=== PATIENT | female | born 1970 | race Caucasian/White ===

== ENCOUNTER 2017-08-03 18:12 | Emergency (ER) | payer BC ==
[2017-08-03 20:22] LABS: Absolute Monocytes 0.8 K/uL (0.1-1.3); Absolute Neutrophil 4.9 K/uL (1.8-8.0); Basophils % 0.9 % (0-1.3); Eosinophils % 1.8 % (0-4.4); Hematocrit 37.6 % (36.0-45.0); Lymphocytes % 33.4 % (15.3-44.8); MCH 25.1 pg (27.0-35.0); Monocytes % 8.8 % (3.3-12.3); RBC Red Blood Cell Count 4.94 M/uL (3.86-4.86)
[2017-08-03 20:34] LABS: Bicarbonate 32 mEq/L (21-31); Glucose Level 106 mg/dL (65-120); Lipase 15 U/L (22-51); Potassium 4.1 mEq/L (3.6-5.0); Sodium Level 139 mEq/L (135-145)
[2017-08-03 20:41] LABS: ALT/SGPT 17 IU/L (10-60); AST/SGOT 21 IU/L (10-42); Albumin 4.5 g/dL (3.2-5.5); Alkaline Phosphatase 70 IU/L (42-121); Amylase Level 56 U/L (28-100); BUN Blood Urea Nitrogen 11 mg/dL (6-20); Bilirubin Direct < 0.1 mg/dL (0-0.2); Bilirubin Total 0.6 mg/dL (0.3-1.2); Protein, Total 8.2 g/dL (6.0-8.3)
[2017-08-03 20:46] LABS: Urine Blood NEGATIVE (NEG); Urine Glucose NEGATIVE (NEG); Urine Protein NEGATIVE (NEG)
[2017-08-03 20:49] LABS: Urine Bacteria <20 /HPF (<20); Urine RBC <5 /HPF (NONE SEEN)
[2017-08-03 20:50] LABS: Urine Culture Reflex Order NOT NEEDED
[2017-08-03] MEDS ORDERED: ONDANSETRON 4 MG/2 ML VIAL ONE (21:07)
[2017-08-03] MEDS ORDERED: MORPHINE 4 MG/ML SYR ONE (21:07)
[2017-08-03] MEDS ORDERED: NA CHLORIDE 0.9% 1,000 ML ONE (21:08)
--- NOTE | 2017-08-03 21:24 | RAD REPORT ---
EXAM DESCRIPTION: US - Abdomen Exam Limited - 08/03/2017 8:44 pm CLINICAL HISTORY: Abdominal pain. COMPARISON: June 2017 FINDINGS: The gallbladder wall is not thickened. A gallstone is not seen. A 4 millimeter allow poly p is present. The biliary tree is normal caliber. IMPRESSION: 4 millimeter gallbladder polyp unchanged from June 2017
--- NOTE | 2017-08-03 22:11 | EDPHYS ---
Physician Documentation [facility] Name: Abby Fleming Age: 47 yrs Sex: Female : 1970 Arrival Date: 08/03/2017 Time: 18:15 Bed 27 Private MD: Sylvester Pickett ED Physician Benjamín Watkins HPI: 08/03 20:11 This 47 yrs old Female presents to ER via Ambulatory with complaints of Flank pkl Pain. 20:11 The patient presents with abdominal pain in the right upper quadrant. Onset: The pkl symptoms/episode began/occurred 1 month(s) ago, and became worse today. The symptoms radiate to right back. Associated signs and symptoms: Pertinent positives: nausea, vomiting, and diarrhea. The patient has experienced a previous episode, approximately 1 months ago, and the symptoms today are exactly the same. 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 - Social history:: Smoking status: unknown. ROS: 20:11 Eyes: Negative for injury, pain, redness, and discharge, ENT: Negative for injury, pkl pain, and discharge, Neck: Negative for injury, pain, and swelling, Cardiovascular: Negative for chest pain, palpitations, and edema, Respiratory: Negative for shortness of breath, cough, wheezing, and pleuritic chest pain. 20:11 Abdomen/GI: Positive for abdominal pain, nausea, vomiting, and diarrhea, of the right upper quadrant. 20:11 Back: Negative for acute changes. 20:11 : Negative for urinary symptoms. 20:11 MS/extremity: Negative for acute changes. 20:11 Skin: Negative for rash. 20:11 Neuro: Negative for altered mental status. Exam: 20:11 Head/Face: Normocephalic, atraumatic. Eyes: Pupils equal round and reactive to light, pkl extra-ocular motions intact. Lids and lashes normal. Conjunctiva and sclera are non-icteric and not injected. Cornea within normal limits. Periorbital areas with no swelling, redness, or edema. ENT: Nares patent. No nasal discharge, no septal abnormalities noted. Tympanic membranes are normal and external auditory canals are clear. Oropharynx with no redness, swelling, or masses, exudates, or evidence of obstruction, uvula midline. Mucous membranes moist. Neck: Trachea midline, no thyromegaly or masses palpated, and no cervical lymphadenopathy. Supple, full range of motion without nuchal rigidity, or vertebral point tenderness. No Meningismus. Chest/axilla: Normal chest wall appearance and motion. Nontender with no deformity. No lesions are appreciated. Cardiovascular: Regular rate and rhythm with a normal S1 and S2. No gallops, murmurs, or rubs. Normal PMI, no JVD. No pulse deficits. Respiratory: Lungs have equal breath sounds bilaterally, clear to auscultation and percussion. No rales, rhonchi or wheezes noted. No increased work of breathing, no retractions or nasal flaring. 20:11 Abdomen/GI: Bowel sounds: normal, Palpation: soft, mild abdominal tenderness, in the right upper quadrant. 20:11 Back: Exam negative for acute changes. 20:11 : Exam negative for acute changes. 20:11 Musculoskeletal/extremity: Exam is negative for acute changes. 20:11 Skin: Exam negative for rash. Vital Signs: 18:31 BP 126 / 82; Pulse 77; Resp 18; Temp 97.7(TE); Pulse Ox 100% on R/A; Weight 81.65 kg; hj Height 5 ft. 6 in. (167.64 cm); Pain 8/10; 20:30 BP 129 / 77; Pulse 67; Resp 16; Pulse Ox 99% on R/A; rk2 22:32 BP 121 / 74; Pulse 81; Resp 16; Pulse Ox 100% on R/A; rk2 18:31 Body Mass Index 29.05 (81.65 kg, 167.64 cm) hj MDM: 19:39 Patient medically screened. pkl 22:09 Data reviewed: vital signs, nurses notes, EKG, radiologic studies, ultrasound. pk 08/03 19:57 Order name: Amylase, Serum; Complete Time: 21:51 pkl 08/03 19:57 Order name: Basic Metabolic Panel; Complete Time: 21:51 pkl 08/03 19:57 Order name: CBC with Diff; Complete Time: 20:35 pkl 08/03 19:57 Order name: Creatinine for Radiology; Complete Time: 21:51 pkl 08/03 19:57 Order name: Hepatic Function; Complete Time: 21:51 pkl 08/03 19:57 Order name: Lipase; Complete Time: 21:51 pkl 08/03 19:57 Order name: Urine Microscopic Only; Complete Time: 21:51 pkl 08/03 19:57 Order name: IV Saline Lock; Complete Time: 21:42 pkl 08/03 19:58 Order name: US Abdomen Limited; Complete Time: 21:51 pkl 08/03 20:29 Order name: Urine Dipstick--Ancillary (enter results); Complete Time: 21:51 rg2 08/03 20:29 Order name: Urine --Ancillary (enter results); Complete Time: 21:51 rg2 08/03 19:57 Order name: Labs collected and sent; Complete Time: 21:42 pkl 08/03 19:57 Order name: Urine Dipstick-Ancillary (obtain specimen); Complete Time: 21:42 pkl Administered Medications: 20:52 Drug: Zofran 4 mg Route: IVP; Site: right antecubital; rk2 21:30 Follow up: Response: No adverse reaction rk2 20:53 Drug: NS 0.9% 1000 ml Route: IV; Rate: 125 ml/hr; Site: right antecubital; rk2 22:30 Follow up: Response: No adverse reaction; IV Status: Completed infusion rk2 20:53 Drug: morphine 4 mg Route: IVP; Site: right antecubital; rk2 21:30 Follow up: Response: No adverse reaction rk2 Disposition: 08/03/17 22:10 Discharged to Home. Impression: Abdominal pain. Right upper quadrant. - Condition is Stable. - Prescriptions for Protonix 40 mg Oral Tablet, Delayed Release (E.C.) - take 1 tablet by ORAL route once daily; 15 tablet. Ultram 50 mg Oral Tablet - take 1 tablet by ORAL route every 8 hours As needed; 15 tablet. Zofran 4 mg Oral Tablet - take 1 tablet by ORAL route every 12 hours As needed; 6 tablet. - Medication Reconciliation Form, Thank You Letter, Antibiotic Education, Prescription Opioid Use form. - Follow up: Sylvester Pickett MD; When: 2 - 3 days; Reason: Re-evaluation by your physician. - Problem is new. - Symptoms have improved. Signatures: Dispatcher [employer] Benjamín Walton MD MD pkGunner Contreras RN RN hj Ritu Patterson RN RN rk2
--- NOTE | 2017-08-03 22:11 | ER ---
Nurse's Notes [facility] Name: Abby Fleming Age: 47 yrs Sex: Female : 1970 Arrival Date: 08/03/2017 Time: 18:15 Bed 27 Private MD: Sylvester Pickett Diagnosis: Abdominal pain. Right upper quadrant Presentation: 08/03 18:28 Presenting complaint: Patient states: i have this sharp stabbing pain on my R flank, hj that started a month ago; went to PCP, Rx with antibiotics for gallbladder; pain nis back and is severe; pain 8/10; reports nausea, vomiting, diarrhea;. Transition of care: patient was not received from another setting of care. Onset of symptoms was August 03, 2017. Care prior to arrival: None. 18:28 Method Of Arrival: Ambulatory hj 18:28 Acuity: MELQUIADES 3 hj Triage Assessment: 18:30 General: Appears in no apparent distress. uncomfortable, Behavior is calm, cooperative, hj appropriate for age. Pain: Complains of pain in anterior aspect of right lateral abdomen and right upper quadrant. 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 - Social history:: Smoking status: unknown. Screenin:55 Abuse screen: Denies threats or abuse. rk2 19:55 Nutritional screening: No deficits noted. Tuberculosis screening: No symptoms or risk rk2 factors identified. Fall Risk None identified. Assessment: 19:55 General: Appears in no apparent distress. well groomed, well developed, well nourished. rk2 19:55 Pain: Complains of pain in abdomen and right upper quadrant and anterior aspect of rk2 right lateral abdomen. Neuro: Level of Consciousness is alert, Oriented to person, place, time, situation. Respiratory: Airway is patent Respiratory effort is even, unlabored, Respiratory pattern is regular, symmetrical. GI: Abdomen is distended, Abd is non tender in right upper quadrant. Derm: Skin is pink, warm \T\ dry. Vital Signs: 18:31 BP 126 / 82; Pulse 77; Resp 18; Temp 97.7(TE); Pulse Ox 100% on R/A; Weight 81.65 kg; hj Height 5 ft. 6 in. (167.64 cm); Pain 8/10; 20:30 BP 129 / 77; Pulse 67; Resp 16; Pulse Ox 99% on R/A; rk2 22:32 BP 121 / 74; Pulse 81; Resp 16; Pulse Ox 100% on R/A; rk2 18:31 Body Mass Index 29.05 (81.65 kg, 167.64 cm) ED Course: 18:15 Patient arrived in ED. rg4 18:16 Sylvester Pickett MD is Private Physician. rg4 18:30 Triage completed. hj 18:31 Arm band placed on right wrist. hj 19:38 Benjamín Watkins MD is Attending Physician. pkl 19:50 Ritu Patterson RN is Primary Nurse. rk2 19:55 Patient has correct armband on for positive identification. Bed in low position. Call rk2 light in reach. 20:44 US Abdomen Limited In Process Unspecified. EDMS 20:44 Ultrasound completed. Patient tolerated well. aa4 22:09 Sylvester Pickett MD is Referral Physician. pkl 22:44 No provider procedures requiring assistance completed. IV discontinued. rk2 Administered Medications: 20:52 Drug: Zofran 4 mg Route: IVP; Site: right antecubital; rk2 21:30 Follow up: Response: No adverse reaction rk2 20:53 Drug: NS 0.9% 1000 ml Route: IV; Rate: 125 ml/hr; Site: right antecubital; rk2 22:30 Follow up: Response: No adverse reaction; IV Status: Completed infusion rk2 20:53 Drug: morphine 4 mg Route: IVP; Site: right antecubital; rk2 21:30 Follow up: Response: No adverse reaction rk2 Outcome: 22:10 Discharge ordered by . pkl 22:44 Discharged to home ambulatory. rk2 22:44 Condition: good 22:44 Discharge instructions given to patient, Prescriptions given X 3. 22:47 Patient left the ED. rk2 Signatures: Dispatcher [employer] EDMS Benjamín Watkins MD MD pkl Agnes Johnson aa4 Gunner Tong RN RN hj Garcia, Rubi rg4 Ritu Patterson, RN RN rk2 Corrections: (The following items were deleted from the chart) 18:32 18:31 Pulse 77bpm; Resp 18bpm; Pulse Ox 100% RA; Temp 97.7F Temporal; 81.65 kg; Height hj 5 ft. 6 in.; BMI: 29.0; Pain 8/10; hj
== END 2017-08-03 22:47 | disposition home or self-care (01) ==
LOC: ER 18:12
DX: R10.11 Right upper quadrant pain (principal); Z88.0 Allergy status to penicillin
CPT/HCPCS: 36415; 76705; 80048; 80076; 81003; 81015; 81025; 82150; 83690; 85025; 96361; 96374; 96375; 99283; J2405; J7030

== ENCOUNTER 2017-08-24 08:14 | Day surgery (SDC) | payer BC ==
--- NOTE | 2017-08-20 12:15 | RAD REPORT ---
EXAM DESCRIPTION: RADOP - Outpt Chest Pa/Lat (2 Views) - 08/20/2017 11:53 am CLINICAL HISTORY: Preop/abdominal pain COMPARISON: 2016 FINDINGS: The lungs appear clear of acute infiltrate. The heart is normal size. IMPRESSION: No acute abnormality is displayed
[2017-08-20 12:37] LABS: Absolute Lymphocytes (CBC) 2.6 K/uL (0.7-4.9); Absolute Monocytes 0.6 K/uL (0.1-1.3); Absolute Neutrophil 3.3 K/uL (1.8-8.0); Basophils % 1.4 % (0-1.3); Eosinophils % 2.1 % (0-4.4); Hematocrit 36.5 % (36.0-45.0); Lymphocytes % 38.7 % (15.3-44.8); MCH 25.3 pg (27.0-35.0); MCV 77.8 fL (80-100); MPV 10.9 fL (7.6-11.3); Monocytes % 8.9 % (3.3-12.3); RBC Red Blood Cell Count 4.69 M/uL (3.86-4.86)
[2017-08-20 13:01] LABS: BUN Blood Urea Nitrogen 14 mg/dL (6-20); Bicarbonate 30 mEq/L (21-31); Glucose Level 101 mg/dL (65-120); Potassium 3.8 mEq/L (3.6-5.0); Sodium Level 137 mEq/L (135-145)
[2017-08-20 13:04] LABS: Bilirubin Direct 0.1 mg/dL (0-0.2); Bilirubin Total 0.4 mg/dL (0.3-1.2); Protein, Total 7.2 g/dL (6.0-8.3)
--- NOTE | 2017-08-20 15:29 | EKG ---
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
[~2017-08-24 08:14] MED LIST: CEFOXITIN/SWI 1gm 1 GM/10 ML SYR IV SCH
[2017-08-24] MEDS ORDERED: BUPIVACAINE 0.5% PF 10 ML VIAL ONE (08:47)
[2017-08-24] MEDS ORDERED: Ringers Lactate 1,000 ML IV ONE (08:53)
[2017-08-24] MEDS ORDERED: CIPROFLOXACIN 400mg IV 400 MG/200 ML BAG IV ONE (08:54)
[2017-08-24] MEDS ORDERED: PROPOFOL 200 MG/20 ML VIAL IV ONE (09:05)
[2017-08-24] MEDS ORDERED: MIDAZOLAM HCL 2 MG/2 ML INJ ONE (09:06)
[2017-08-24] MEDS ORDERED: LIDOCAINE 2% MPF 5 ML VIAL ONE (09:06)
[2017-08-24] MEDS ORDERED: ONDANSETRON 4 MG/2 ML VIAL ONE (09:07)
[2017-08-24] MEDS ORDERED: ROCURONIUM 50 MG/5 ML VIAL IV ONE (09:07)
[2017-08-24] MEDS ORDERED: FENTANYL CITR 100 MCG/2 ML ONE (09:07)
[2017-08-24] MEDS ORDERED: DEXAMETHASONE 10 MG/ML VIAL ONE (09:51)
[2017-08-24] MEDS ORDERED: GLYCOPYRROLATE 0.2 MG/ML SYR ONE (10:33)
[2017-08-24] MEDS ORDERED: NEOSTIGMINE 1 MG/ML -5 ML SYRINGE ONE (10:33)
--- NOTE | 2017-08-24 10:53 | P.BOP ---
Preoperative diagnosis: biliary dyskinesia, RUQ pain, cholecystitis Postoperative diagnosis: same Primary procedure: Laparoscopic cholecystectomy Pulpit Operator: BRIGITTE CAGLE Estimated blood loss: <10cc Specimen: gb Findings: as above Anesthesia: General Complications: None Drain(s): Other Transferred to: Recovery Room Condition: Good
[2017-08-24] MEDS: MORPHINE 4 MG/ML SYR ONE ×4 (11:04→11:22)
[2017-08-24] MEDS ORDERED: MORPHINE 4 MG/ML SYR ONE (11:27)
[2017-08-24] MEDS ORDERED: CODEINE 30MG/APAP 300MG TAB ONE (11:53)
[2017-08-24] MEDS ORDERED: DIPHENHYDRAMINE 25 MG TAB/CAP ONE (13:24)
--- NOTE | 2017-08-24 22:19 | OP ---
Date of Procedure: 08/24/2017 Surgeon: Gunner Singh MD [employer] Tufting Machine Operator: Julia Rivera. Preoperative Diagnoses: Biliary dyskinesia, right upper quadrant pain, cholecystitis. Postoperative Diagnoses: Biliary dyskinesia, right upper quadrant pain, cholecystitis. Procedure: Laparoscopic cholecystectomy. Estimated Blood Loss: Less than 10 cc. Specimen: Gallbladder. Findings: As above. Anesthesia: General plus local. Indications: This is the case of a 47-year-old patient with above diagnosis. Fully explained the be nefits, alternatives, and risks of laparoscopic, possible open cholecystectomy which include but are not limited to infection, bleeding, damage to adjacent structures, anesthesia complication, choledoch olithiasis, bile leak, pancreatitis, DC, and even . She also understands this may not relieve a ny symptoms. She might need more than one surgical intervention. She understood and signed the cons ent. Description Of Procedure: The patient was brought to the operating room, placed in the supine positi on. Anesthesia was induced without complication. Abdominal area was prepped and draped in usual khadijah rile fashion. Marcaine 0.5% injected for local anesthetic, followed by sharp incision of the skin in the infraumbilical region. Incision was carried down to fascia, which was opened under direct visio n. Peritoneum was encountered, opened under direct vision. Vicryl #1 placed inside the fascia. Has son trocar was carefully introduced. Pneumoperitoneum was obtained. After that, I placed 3 more tro cars, 5 mm each one of them, 1 in the epigastric region, 2 in the right upper quadrant using same maya hnique, which consisted of local anesthetic, sharp incision of the skin, and introduction of the troc ars under direct vision. This allowed me to put a grasper in the fundus of the gallbladder, another grasper in the infundibulum, retracted the gallbladder in the inferolateral fashion exposing the tria ngle of [place], and obtaining critical view of safety. The cystic duct and cystic artery were clearly isolated free circumferentially, and a connection between those and the gallbladder were clearly william ntified. I proceeded to ligate those by using at least 3 clips proximal, 1 clip distal, ligation in the middle. Same was done with the cystic artery. No bile leak. No bleeding. The gallbladder was removed from liver using Bovie cauterizer and removed from abdominal cavity using an EndoCatch throug h the umbilical incision. The area was inspected once again. No bile leak. No bleeding. At that m oment, I proceeded to remove the trocars under direct vision. Deflated the pneumoperitoneum, closed the fascia with #1 Vicryl, irrigated subcutaneous tissue, and closed that with 3-0 chromic and the sk in in a subcuticular fashion with 3-0 chromic and Steri-Strips on top. Sponge count and instrument c ounts were correct. The patient tolerated the procedure well. The patient was sent to recovery in s table condition. LYNETTE/MARY Voice ID: [id number] Report ID: [id number]
--- NOTE | 2017-08-24 22:22 | DS ---
Date of Discharge: 08/24/2017 Diagnoses: Biliary dyskinesia, right upper quadrant pain, cholecystitis. Procedure: Laparoscopic cholecystectomy. Disposition: Home. Activity: As tolerated. No heavy lifting. Followup: Follow up in my office in 1 week. Call for appointment [phone]. Keep area dry for 48 ho urs, then may shower. Keep Steri-Strips intact. Medications: See orders. LYNETTE/MARY Voice ID: [id number] Report ID: [id number]
== END 2017-08-24 14:00 | disposition home or self-care (01) ==
LOC: OR 08:14
PROVIDERS: ATTEND Surgery
PROC: 0FT44ZZ Resection of Gallbladder, Percutaneous Endoscopic Approach (ICD-10-PCS; principal; 2017-08-24 09:45)
DX: K81.1 Chronic cholecystitis (principal); K82.8 Other specified diseases of gallbladder; K58.9 Irritable bowel syndrome, unspecified; K21.9 Gastro-esophageal reflux disease without esophagitis; Z88.0 Allergy status to penicillin; Z80.1 Family history of malignant neoplasm of trachea, bronchus and lung; Z80.8 Family history of malignant neoplasm of other organs or systems; Z82.49 Family history of ischemic heart disease and other diseases of the circulatory system
CPT/HCPCS: 36415; 71046; 80048; 80076; 82150; 83690; 85025; 88304; 88305; 93005; J0744; J1100; J2250; J2405; J2710; J3010

== ENCOUNTER 2018-02-21 02:36 | Emergency (ER) | payer BC ==
[2018-02-21] MEDS ORDERED: HYDROCODONE/APAP 7.5/325 MG TAB ONE (03:47)
[2018-02-21] MEDS ORDERED: KETOROLAC 30 MG/ML INJ ONE (03:47)
--- NOTE | 2018-02-21 04:56 | ER ---
Nurse's Notes [facility] Name: Abby Fleming Age: 47 yrs Sex: Female : 1970 Arrival Date: 02/21/2018 Time: 02:37 Bed 18 Private MD: Sylvester Pickett Diagnosis: Sciatica, left side Presentation: 02/21 02:54 Presenting complaint: Patient states: Pain to left flank/hip; States difficulty weight lp1 bearing; States hx of pain "but never this bad"; Denies any trauma to site. Transition of care: patient was not received from another setting of care. Onset of symptoms was February 21, 2018. Risk Assessment: Do you want to hurt yourself or someone else? Patient reports no desire to harm self or others. Initial Sepsis Screen: Does the patient meet any 2 criteria? No. Patient's initial sepsis screen is negative. Does the patient have a suspected source of infection? No. Patient's initial sepsis screen is negative. Care prior to arrival: None. 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 - Social history:: Smoking status: Patient/guardian denies using tobacco. - Ebola Screening: : No symptoms or risks identified at this time. Screenin:58 Abuse screen: Denies threats or abuse. Denies injuries from another. Nutritional lp1 screening: No deficits noted. Tuberculosis screening: No symptoms or risk factors identified. Fall Risk None identified. Assessment: 02:57 General: Appears uncomfortable, Behavior is appropriate for age. Pain: Complains of lp1 pain in left low back Pain radiates to left hip Pain currently is 9 out of 10 on a pain scale. Quality of pain is described as sharp, Aggravated by increased activity, weight bearing. Neuro: Level of Consciousness is awake, alert, obeys commands. Cardiovascular: Patient's skin is warm and dry. Respiratory: No deficits noted. GI: No deficits noted. : No deficits noted. EENT: No deficits noted. Derm: Skin is pink, warm \\T\\ dry. Musculoskeletal: Circulation, motion, and sensation intact. Vital Signs: 02:56 BP 126 / 70; Pulse 71; Resp 18; Temp 97.7(O); Pulse Ox 100% on R/A; Weight 83.91 kg; lp1 Height 5 ft. 5 in. (165.10 cm); Pain 9/10; 02:56 Body Mass Index 30.79 (83.91 kg, 165.10 cm) lp1 ED Course: 02:37 Patient arrived in ED. am2 02:37 Sylvester Pickett MD is Private Physician. am2 02:50 Valentin Brennan MD is Attending Physician. 02:54 Karolyn Ellis RN is Primary Nurse. lp1 02:55 Triage completed. lp1 02:57 Arm band placed on left wrist. lp1 02:58 Patient has correct armband on for positive identification. lp1 05:00 No provider procedures requiring assistance completed. Patient did not have IV access cc3 during this emergency room visit. Administered Medications: 03:44 Drug: Urania (7.5 mg-325 mg) 1 tabs Route: PO; lp1 05:05 Follow up: Response: Pain is decreased lp1 03:44 Drug: TORadol 30 mg Route: IM; Site: right deltoid; lp1 05:05 Follow up: Response: Pain is decreased lp1 Outcome: 04:56 Discharge ordered by . 05:00 Discharged to home ambulatory, with family. cc3 05:00 Condition: stable 05:00 Discharge instructions given to patient, family, Instructed on discharge instructions, follow up and referral plans. medication usage, Demonstrated understanding of instructions, follow-up care, medications, Prescriptions given X 2. 05:05 Patient left the ED. cc3 Signatures: Karolyn Ellis RN RN 1 Agnes Spears am2 Valentin Brennan MD MD Philly Woody cc3
--- NOTE | 2018-02-21 04:56 | EDPHYS ---
Physician Documentation [facility] Name: Abby Fleming Age: 47 yrs Sex: Female : 1970 Arrival Date: 02/21/2018 Time: 02:37 Bed 18 Private MD: Sylvester Pickett ED Physician Valentin Brennan HPI: 02/21 05:32 This 47 yrs old Female presents to ER via Ambulatory with complaints of Hip gs Pain. 05:32 The patient or guardian reports pain. The complaints affect the left gluteus jordyn. gs Onset: The symptoms/episode began/occurred 4 day(s) ago, and became persistent. Modifying factors: the symptoms are aggravated by any movement, extension. Associated signs and symptoms: Pertinent negatives: incontinence, weakness. Severity of symptoms: At their worst the symptoms were moderate, in the emergency department the symptoms are unchanged. The patient has not experienced similar symptoms in the past. 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 - Social history:: Smoking status: Patient/guardian denies using tobacco. - Ebola Screening: : No symptoms or risks identified at this time. ROS: 05:32 All other systems are negative. gs Exam: 05:32 Head/Face: Normocephalic, atraumatic. Eyes: Pupils equal round and reactive to light, gs extra-ocular motions intact. Lids and lashes normal. Conjunctiva and sclera are non-icteric and not injected. Cornea within normal limits. Periorbital areas with no swelling, redness, or edema. ENT: Nares patent. No nasal discharge, no septal abnormalities noted. Tympanic membranes are normal and external auditory canals are clear. Oropharynx with no redness, swelling, or masses, exudates, or evidence of obstruction, uvula midline. Mucous membranes moist. Neck: Trachea midline, no thyromegaly or masses palpated, and no cervical lymphadenopathy. Supple, full range of motion without nuchal rigidity, or vertebral point tenderness. No Meningismus. Chest/axilla: Normal chest wall appearance and motion. Nontender with no deformity. No lesions are appreciated. Cardiovascular: Regular rate and rhythm with a normal S1 and S2. No gallops, murmurs, or rubs. Normal PMI, no JVD. No pulse deficits. Respiratory: Lungs have equal breath sounds bilaterally, clear to auscultation and percussion. No rales, rhonchi or wheezes noted. No increased work of breathing, no retractions or nasal flaring. Abdomen/GI: Soft, non-tender, with normal bowel sounds. No distension or tympany. No guarding or rebound. No evidence of tenderness throughout. Skin: Warm, dry with normal turgor. Normal color with no rashes, no lesions, and no evidence of cellulitis. MS/ Extremity: Pulses equal, no cyanosis. Neurovascular intact. Full, normal range of motion. Neuro: Awake and alert, GCS 15, oriented to person, place, time, and situation. Cranial nerves II-XII grossly intact. Motor strength 5/5 in all extremities. Sensory grossly intact. Cerebellar exam normal. Normal gait. 05:32 Constitutional: The patient appears alert, awake, uncomfortable. 05:32 Back: pain, that is moderate, of the left gluteus jordyn, Straight leg raises: left lower extremity illicits pain, at 45 degrees. Vital Signs: 02:56 BP 126 / 70; Pulse 71; Resp 18; Temp 97.7(O); Pulse Ox 100% on R/A; Weight 83.91 kg; lp1 Height 5 ft. 5 in. (165.10 cm); Pain 9/10; 02:56 Body Mass Index 30.79 (83.91 kg, 165.10 cm) lp1 MDM: 03:08 Patient medically screened. 05:32 Differential diagnosis: strain. Data reviewed: vital signs, nurses notes. Counseling: I gs had a detailed discussion with the patient and/or guardian regarding: the historical points, exam findings, and any diagnostic results supporting the discharge/admit diagnosis, the need for outpatient follow up. Administered Medications: 03:44 Drug: [place] (7.5 mg-325 mg) 1 tabs Route: PO; lp1 05:05 Follow up: Response: Pain is decreased lp1 03:44 Drug: TORadol 30 mg Route: IM; Site: right deltoid; lp1 05:05 Follow up: Response: Pain is decreased lp1 Disposition: 02/21/18 04:56 Discharged to Home. Impression: Sciatica, left side. - Condition is Stable. - Discharge Instructions: Sciatica. - Prescriptions for Prednisone 20 mg Oral Tablet - take 1 tablet by ORAL route once daily for 5 days; 5 tablet. Tylenol- Codeine #4 300-60 mg Oral Tablet - take 1 tablet by ORAL route every 6 hours As needed; 10 tablet. - Medication Reconciliation Form, Thank You Letter, Antibiotic Education, Prescription Opioid Use form. - Follow up: Private Physician; When: 2 - 3 days; Reason: Re-evaluation by your physician. Signatures: Karolyn Ellis RN RN lp1 Valentin Brennan MD MD Philly Woody cc3 Corrections: (The following items were deleted from the chart) 05:05 04:56 02/21/2018 04:56 Discharged to Home. Impression: Sciatica, left side. Condition cc3 is Stable. Forms are Medication Reconciliation Form, Thank You Letter, Antibiotic Education, Prescription Opioid Use. Follow up: Private Physician; When: 2 - 3 days; Reason: Re-evaluation by your physician. gs
== END 2018-02-21 05:05 | disposition home or self-care (01) ==
LOC: ER 02:36
DX: M54.32 Sciatica, left side (principal); Z88.0 Allergy status to penicillin
CPT/HCPCS: 96372; 99283

== ENCOUNTER 2022-05-13 14:49 | Emergency (ER) | payer BC ==
--- OUTSIDE RECORDS SUMMARY | 2022-05-13 14:52 | XMS REPORT | Continuity of Care Document ---
:1970 Author Organization [facility] t Address [address] [place] [address] Care Team Providers Name Role Phone SONJA RUIZ Attending Clinician Unavailable GEO HERNDON Attending Clinician Unavailable BETTINA AVILES Attending Clinician Unavailable LAB90 Attending Clinician Unavailable Jimenez Cuellar NP Attending Clinician Sonja Ruiz MD Attending Clinician [phone] BRONWYN LOPEZ Attending Clinician Unavailable 2, [facility] Attending Clinician Unavailable Bronwyn Lopez MD Attending Clinician Doctor Unassigned, [place] Attending Clinician Unavailable Payers Payer Name Policy Type Policy Number Effective Date Expiration Date S jill [facility] [id number] 2021 [place] ([place] 00:00:00 CAPIT[place]) BCBS-ESSENTIALS 2 [id number] 2021 00:00:00 [facility] [id number] 2014 PPO 00:00:00 [employer] [facility] [id number] 2017 00:00:00 Problems Condition Condition Condition Status Onset Resolution Last Treating Co mments Source Name Details Category Date Date Treatment Clinician Date 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 arthritis 00:00: - 00 Externa l Left hip Left hip Disease Active Kelse y pain - Not pain - Not 01-03 Se ybold Controlled Controlled 00:00: - 00 Externa l Allergies, Adverse Reactions, Alerts Allergy Allergy Status Severity Reaction(s) Onset Inactive Treating Comm ents Source Name Type Date Date Clinician Penicill Propensi Active Hives Jennifer ins ty to 12-20 Seybold adverse 00:00: - reaction 00 Externa s l Wound Propensi Active Other Jennifer Dressing ty to 08-20 reaction( Seybo ld Adhesive adverse 00:00: s): Rash - reaction 00 Externa s l Penicill Propensi Active Rash 2014-05 Jennifer in G ty to 0-05 Seybold adverse 00:00: - reaction 00 Externa s l Penicill Propensi Active Rash 2014-05 Univer s in ty to 0-05 ity of adverse 00:00: [place] reaction 00 [facility] s [facility] PENICILL DRUG Active Rash 2014-05 Univers IN INGREDI 0-05 ity of 00:00: [place] 00 [facility] Branch Penicill Propensi Active Rash 2014-05 Univer s in ty to 0-05 ity of adverse 00:00: [place] reaction 00 [facility] s [facility] Social History Social Habit Start Date Stop Date Quantity Comments Source History SDOH Jennifer Ferreiraybo ld - Alcohol Frequency Externa l History SDOH Jennifer Ferreiraybo ld - Alcohol Std External Drinks History SDOH Jennifer Ferreiraybo ld - Alcohol Binge External Exposure to Not sure [facility] of SARS-CoV-2 [place] [facility] (event) Branch Alcohol intake 2022-02-24 2022-02-24 Current drinker Loi huffman Seybold - 00:00:00 00:00:00 of alcohol External (finding) Alcohol Comment 2021-12-20 2021-12-20 social Jennifer ybold - 00:00:00 00:00:00 External Sex [birth year] At [birth year] Jennifer Se ybold - 00:00:00 00:00:00 External Smoking Status Start Date Stop Date Source Unknown if ever smoked [facility] Never smoked tobacco Jennifer Padilla old - External Medications Ordered Filled Start Stop Current Ordering Indication Dosage Frequency Signature Comments Components Source Medication Medication Date Date Medication? Clinician (SIG) Name Name Doxycycline 2021-05 Yes [id number] 100mg Take 1 Jennifer Hyclate 100 2-07 tablet Seybol d MG oral 00:00: (100 mg - Tablet 00 total) by Externa mouth 2 l times daily Pseudoephed 2021-05 Yes [id number] 1{tbl} Take 1 Jennifer rine-Guaife 2-07 tablet by Cathy domínguez 00:00: mouth - (Mucinex D 00 every 12 Exter na Max hours l Strength) 120-1200 MG oral Tablet 12 Hour Sustained Release methylPREDN 2021-05 Yes [id number] Take 1 fátima Jennifer ISolone 4 2-07 by mouth Seybol d MG oral 00:00: See Admin - Tablet 00 Instructio Externa Therapy ns Use as l Pack directed Pantoprazol 2021-05 Yes [id number] 40mg Take 1 Jennifer e Sodium 40 1-15 tablet (40 Se ybold MG oral 00:00: mg total) - Tablet 00 by mouth Externa Delayed daily l Response Meloxicam 2021- No [id number] 7.5mg Take 1 Jennifer 7.5 MG oral 8-12 12-07 tablet Seybo ld Tablet 00:00: 00:00 (7.5 mg - 00 :00 total) by Externa mouth l daily ibuprofen Yes 600mg Take 1 Unive rs (MOTRIN) 5-04 tablet by ity of 600 mg 00:00: mouth [place] tablet 00 every 6 Medical (six) Branch hours as needed for Pain (scale 4-6). acetaminoph Yes 1{tbl} Take 1 Un jerrell en-codeine 5-04 tablet by ity of (TYLENOL 00:00: mouth [place] #3) 300-30 00 every 4 Medica l mg tablet (four) Branch hours as needed for Pain (scale 4-6). ibuprofen Yes 600mg Take 1 Unive rs (MOTRIN) 5-04 tablet by ity of 600 mg 00:00: mouth [place] tablet 00 every 6 Medical (six) Branch hours as needed for Pain (scale 4-6). acetaminoph Yes 1{tbl} Take 1 Un jerrell en-codeine 5-04 tablet by ity of (TYLENOL 00:00: mouth [place] #3) 300-30 00 every 4 Medica l mg tablet (four) Branch hours as needed for Pain (scale 4-6). Procedures Procedure Date / Time Performed Performing Clinician [facility] e PHYSICIAN ORDERS 2019-12-22 05:01:00 Doctor Unassigned, No Unive [facility] Encounters Start End Encounter Admission Attending Care Care Encounter Source Date/Time Date/Time Type Type Clinicians Facility Department ID 2022-05-13 2022-05-13 Outpatient JENNIFER RUIZ [id number] Jennifer 15:30:00 15:30:00 SONJA Seybol d 2022-05-13 2022-05-13 Outpatient JENNIFER RUIZ [id number] Jennifer 00:00:00 00:00:00 SONJA Seybol d 2022-04-18 2022-04-18 Outpatient JENNIFER HERNDON [id number] Jennifer 10:00:00 10:00:00 GEO Seybol d 2022-04-17 2022-04-17 Outpatient JENNIFER AVILES [id number] Jennifer 00:00:00 00:00:00 BETTINA Seybol d 2022-04-16 2022-04-16 Outpatient JENNIFER AVILES [id number] Jennifer 13:30:00 13:30:00 BETTINA Seybol d 2022-04-16 2022-04-16 Outpatient JENNIFER OLIVER [id number] Jennifer 00:00:00 00:00:00 Seybol d 2022-04-15 2022-04-15 Outpatient JENNIFER RUIZ [id number] Jennifer 00:00:00 00:00:00 SONJA Seybol d 2022-03-10 2022-03-10 Outpatient JENNIFER RUIZ [id number] Jennifer 13:30:00 13:30:00 SONJA Seybol d 2022-02-28 2022-02-28 Outpatient LAB90 JENNIFER OLIVER [id number] Jennifer 10:45:00 10:45:00 Seybol d 2022-02-24 2022-02-24 Outpatient LAB90 JENNIFER OLIVER [id number] Jennifer 15:15:00 15:15:00 Seybol d 2022-02-24 2022-02-24 Outpatient JENNIFER RUIZ [id number] Jennifer 14:45:00 14:45:00 SONJA Seybol d 2022-01-09 2022-01-09 E-Visit MARIO Cuellar [id number] Jennifer 10:55:00 11:03:47 Jimenez [id number] Se ybold [id number] 2022-01-06 2022-01-06 Outpatient JENNIFER RUIZ [id number] Jennifer 00:00:00 00:00:00 SONJA Seybol d 2022-01-03 2022-01-03 Office Murphy Ruiz [id number] Jennifer 15:15:00 15:30:00 Visit Sonja Haim [id number] Se ronny Vargasflyodalys [id number] 2021-12-20 2021-12-20 Outpatient LAB90 JENNIFER OLIVER [id number] Jennifer 15:45:00 15:45:00 Seybol d 2021-12-20 2021-12-20 Outpatient JENNIFER RUIZ [id number] Jennifer 15:00:00 15:00:00 SONJA Seybol d 2021-12-17 2021-12-17 Outpatient JENNIFER RUIZ [id number] Jennifer 15:30:00 15:30:00 SONJA Seybol d 2021-12-16 2021-12-16 Outpatient JENNIFER RUIZ [id number] Jennifer 11:00:00 11:00:00 SONJA Seybol d 2020-06-18 2020-06-18 Outpatient R [facility] [id number] Univers 00:00:00 00:00:00 BRONWYN [facility] 2019-12-22 2019-12-22 Outpatient R [facility] [id number] Univers 16:15:00 16:15:00 BRONWYN [facility] 2019-12-22 2019-12-22 Calcine Furnace Tender 2, [facility] [id number] [facility] 14:28:28 14:43:28 Visit Bronwyn Lopez 350.1.1 3.10 ity of [place] [id number] Raquel s Professio [phone] [facility]ical [facility] [address] [facility] 2019-12-22 2019-12-22 Orders Doctor LISA [id number] Univers 00:00:00 00:00:00 Only Unassigned, XOCHILT [id number] ity of [place] [facility] [id number] Russel as [phone] [place] [id number] Branch Results This patient has no known results.
[2022-05-13 15:42] LABS: Urine Blood Negative (Negative); Urine Glucose Negative (Negative); Urine Protein Negative (Negative); Urine Specific Gravity <=1.005 (1.005-1.030)
[2022-05-13 15:48] LABS: Absolute Lymphocytes (CBC) 2.5 K/uL (0.7-4.9); Hematocrit 38.5 % (36.0-45.0); Lymphocytes % 35.3 % (15.3-44.8); MCV 78.1 fL (80-100); MPV 9.6 fL (7.6-11.3); RBC Red Blood Cell Count 4.93 M/uL (3.86-4.86)
[2022-05-13 16:02] LABS: Urine Bacteria <20 /HPF (<20); Urine Crystals Unidentified Few /HPF (None Seen); Urine RBC <5 /HPF (None Seen)
[2022-05-13 16:05] LABS: Albumin 3.9 g/dL (3.4-5.0); Bilirubin Total 0.4 mg/dL (0.2-1.0); Potassium 3.8 mmol/L (3.5-5.1); Protein, Total 7.7 g/dL (6.4-8.2)
--- NOTE | 2022-05-13 17:05 | RAD REPORT ---
EXAM DESCRIPTION: CTAbdomen Pelvis W Contrast - 05/13/2022 4:51 pm CLINICAL HISTORY: right flank pain COMPARISON: Abdomen Pelvis W Contrast dated 11/19/2016; Abdomen Pelvis W Contrast dated 10/14/2016; Abdomen Pelvis W Contrast dated 11/21/2015; CT ABD PELVIS W CONTRAST dated 05/31/2013 TECHNIQUE: CT of the abdomen and pelvis was performed. All CT scans are performed using dose optimization technique as appropriate and may include automated exposure control or mA/KV adjustment according to patient size. FINDINGS: Lower chest: No acute abnormality. Liver: No acute abnormality or suspicious lesions. Biliary: No biliary ductal dilatation. Cholecystectomy. Stomach: No significant focal abnormality. Duodenum: No significant focal abnormality. Pancreas: No significant abnormality. Spleen: No significant abnormality. Adrenal: No suspicious lesions. Kidney/ureter: No hydronephrosis. No renal calculi. Retroperitoneum: No retroperitoneal adenopathy. Vascular: No aneurysm. Bowel: No significant focal abnormality. Peritoneum: No ascites or free air. Bladder: Grossly unremarkable. Reproductive: No adnexal masses. Hysterectomy Bones: No acute fracture. Multilevel degenerative changes are present in the spine. Other: n/a IMPRESSION: No acute intra-abdominal or pelvic finding. No urinary tract calculi. Normal appendix.
--- NOTE | 2022-05-13 19:33 | EDPHYS ---
Physician Documentation [facility] Name: Abby Fleming Age: 52 yrs Sex: Female : 1970 Arrival Date: 05/13/2022 Time: 14:52 Bed 20 Private MD: ED Physician Alex Mandel HPI: 05/13 15:40 This 52 yrs old Female presents to ER via Ambulatory with complaints of Flank Pain, cp Abdominal Pain. 15:40 The patient complains of pain in the right lateral upper abdomen under rib area. The cp pain does not radiate. Onset: The symptoms/episode began/occurred 1 week(s) ago. Modifying factors: the symptoms are aggravated by movement, palpation/percussion. Associated signs and symptoms: Pertinent negatives: diarrhea, dysuria, fever, urinary frequency, hematuria, pain radiating to the lower extremities, vomiting. Severity of pain: in the emergency department the pain is unchanged despite home interventions. 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 - Social history:: Smoking status: Patient denies any tobacco usage or history of. ROS: 15:45 Constitutional: Negative for body aches, chills, fever, poor PO intake. cp 15:45 Eyes: Negative for injury, pain, redness, and discharge. cp 15:45 ENT: Negative for drainage from ear(s), ear pain, sore throat, difficulty swallowing, difficulty handling secretions. 15:45 Cardiovascular: Negative for chest pain, edema, palpitations. 15:45 Respiratory: Negative for cough, shortness of breath, wheezing. 15:45 Abdomen/GI: Positive for abdominal pain, of the right upper quadrant and right upper lateral abdomen, Negative for vomiting, diarrhea, constipation, anorexia. 15:45 : Negative for urinary symptoms. 15:45 Neuro: Negative for altered mental status, headache, numbness, weakness. 15:45 All other systems are negative. Exam: 15:50 Constitutional: The patient appears in no acute distress, alert, awake, cp non-diaphoretic, non-toxic, well developed, well nourished, uncomfortable. 15:50 Head/Face: Normocephalic, atraumatic. cp 15:50 Eyes: Periorbital structures: appear normal, Conjunctiva: normal, no exudate, no injection, Sclera: no appreciated abnormality, Lids and lashes: appear normal, bilaterally. 15:50 ENT: External ear(s): are unremarkable, Nose: is normal, Mouth: Lips: moist, Oral mucosa: pink and intact, moist, Posterior pharynx: Airway: no evidence of obstruction, patent. 15:50 Chest/axilla: Inspection: normal. 15:50 Cardiovascular: Rate: normal, Rhythm: regular. 15:50 Respiratory: the patient does not display signs of respiratory distress, Respirations: normal, no use of accessory muscles, no retractions, labored breathing, is not present, Breath sounds: are clear throughout, no decreased breath sounds, no stridor, no wheezing. 15:50 Abdomen/GI: Inspection: abdomen appears normal, Bowel sounds: active, all quadrants, Palpation: soft, in all quadrants, moderate abdominal tenderness, in the right upper quadrant and right lateral upper abdomen, rebound tenderness, is not appreciated, involuntary guarding, is not appreciated. 15:50 Back: CVA tenderness, is absent. 15:50 Skin: cellulitis, is not appreciated, no rash present. 15:50 Neuro: Orientation: to person, place \T\ time. Mentation: is normal, Motor: moves all fours, strength is normal. Vital Signs: 15:25 BP 167 / 99; Pulse 84; Resp 17; Temp 97.9; Pulse Ox 100% ; Weight 81.65 kg; Height 5 ap3 ft. 6 in. (167.64 cm); Pain 7/10; 19:45 BP 148 / 92; Pulse 68; Resp 18; Pulse Ox 100% ; Pain 2/10; jj7 15:25 Body Mass Index 29.05 (81.65 kg, 167.64 cm) ap3 MDM: 16:00 Differential diagnosis: nephrolithiasis, pyelonephritis, UTI, dissecting AAA, cp contusion, muscle strain. 16:06 Patient medically screened. cp 19:30 Data reviewed: vital signs, nurses notes, lab test result(s), radiologic studies, CT cp scan. 19:30 Counseling: I had a detailed discussion with the patient and/or guardian regarding: the cp historical points, exam findings, and any diagnostic results supporting the discharge/admit diagnosis, lab results, radiology results, the need for outpatient follow up, a family practitioner, to return to the emergency department if symptoms worsen or persist or if there are any questions or concerns that arise at home. Response to treatment: the patient's symptoms have mildly improved after treatment, and as a result, I will discharge patient. ED course: VSS. Discussed results of labs and radiology studies. Will treat for musculoskeletal pain and recommend rest. Will discharge to home for continued monitoring. 05/13 15:33 Order name: CBC with Diff; Complete Time: 16:06 05/13 16:06 Interpretation: Normal except: RBC 4.93; MCV 78.1; MCH 25.5. 05/13 15:33 Order name: CMP; Complete Time: 16:06 05/13 16:07 Interpretation: GLOB 3.8; A/G 1.0. 05/13 15:33 Order name: Lipase; Complete Time: 16:06 05/13 15:33 Order name: Urine Microscopic Only; Complete Time: 16:06 05/13 17:28 Interpretation: Reviewed. 05/13 15:33 Order name: CT Abd/Pelvis - IV Contrast Only; Complete Time: 17:11 05/13 17:11 Interpretation: Report reviewed. 05/13 15:43 Order name: Urine Dipstick-Ancillary; Complete Time: 16:06 EDMS 05/13 15:33 Order name: IV Saline Lock 05/13 15:33 Order name: Labs collected and sent 05/13 15:33 Order name: Urine Dipstick-Ancillary (obtain specimen) 05/13 15:33 Order name: Urine Test (obtain specimen) cp Administered Medications: No medications were administered Disposition Summary: 05/13/22 19:32 Discharge Ordered Location: Home cp Problem: new cp Symptoms: are unchanged cp Condition: Stable cp Diagnosis - Upper abdominal pain, unspecified cp Followup: cp - With: Ji Chance MD - When: 2 - 3 days - Reason: Recheck today's complaints Discharge Instructions: - Discharge Summary Sheet cp - Abdominal Pain, Adult cp Forms: - Medication Reconciliation Form cp - Thank You Letter cp - Antibiotic Education cp - Prescription Opioid Use cp Prescriptions: - Zofran 4 mg Oral Tablet - take 1 tablet by ORAL route every 12 hours As needed; 20 tablet; Refills: 0, cp Product Selection Permitted - dicyclomine 20 mg Oral Tablet - take 1 tablet by ORAL route 4 times per day; 30 tablet; Refills: 0, Product cp Selection Permitted Signatures: Dispatcher [employer] EDOR Aj Chavez PA PA cp Prokisch, Amanda, RN RN ap3
--- NOTE | 2022-05-13 19:33 | ER ---
Nurse's Notes [facility] Name: Abby Fleming Age: 52 yrs Sex: Female : 1970 Arrival Date: 05/13/2022 Time: 14:52 Bed 20 Private MD: Diagnosis: Upper abdominal pain, unspecified Presentation: 05/13 15:25 Chief complaint: Patient states: she started having pain, nausea, and vomiting Thursday ap3 05/06/2022. Patients states the pain is primarily under her right ribs. Coronavirus screen: At this time, the client does not indicate any symptoms associated with coronavirus-19. Ebola Screen: No symptoms or risks identified at this time. Initial Sepsis Screen: Does the patient meet any 2 criteria? No. Patient's initial sepsis screen is negative. Does the patient have a suspected source of infection? No. Patient's initial sepsis screen is negative. Risk Assessment: Do you want to hurt yourself or someone else? Patient reports no desire to harm self or others. Onset of symptoms was May 06, 2022. 15:25 Method Of Arrival: Ambulatory ap3 15:25 Acuity: MELQUIADES 3 ap3 Triage Assessment: 15:28 General: Appears uncomfortable, Behavior is calm, cooperative, appropriate for age. ap3 Pain: Complains of pain in anterior aspect of right lateral abdomen. Neuro: Level of Consciousness is awake, alert, obeys commands, Oriented to person, place, time, situation, Gait is steady, Speech is normal. Cardiovascular: Patient's skin is warm and dry. Respiratory: Airway is patent Respiratory effort is even, unlabored. GI: Reports diarrhea, nausea. GI: Reports upper abdominal pain. 15:29 Pain: Aggravated by eating, repositioning. 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 - Social history:: Smoking status: Patient denies any tobacco usage or history of. Screenin:28 [facility] ED Fall Risk Assessment (Adult) History of falling in the last 3 months, ap3 including since admission. Abuse screen: Denies threats or abuse. Nutritional screening: No deficits noted. Tuberculosis screening: No symptoms or risk factors identified. Assessment: 19:29 General: Appears in no apparent distress. comfortable, Behavior is calm, cooperative, jj7 appropriate for age. Pain: Complains of pain in abdomen Pain currently is 2 out of 10 on a pain scale. 19:29 Reassessment: ASSUMED CARE OF PT. PT SITTING IN CHAIR NO DISTRESS NOTED. PT MOVED TO [facility] BED. CALL MARADIAGA IN REACH. Vital Signs: 15:25 BP 167 / 99; Pulse 84; Resp 17; Temp 97.9; Pulse Ox 100% ; Weight 81.65 kg; Height 5 ap3 ft. 6 in. (167.64 cm); Pain 7/10; 19:45 BP 148 / 92; Pulse 68; Resp 18; Pulse Ox 100% ; Pain 2/10; jj7 15:25 Body Mass Index 29.05 (81.65 kg, 167.64 cm) ap3 ED Course: 14:52 Patient arrived in ED. mr 14:53 Aj Chavez PA is PHCP. cp 14:53 Alex Mandel MD is Attending Physician. cp 15:26 Triage completed. ap3 15:29 Arm band placed on right wrist. ap3 15:29 Inserted saline lock: 20 gauge in left antecubital area, using aseptic technique. Blood ap3 collected. 16:53 CT Abd/Pelvis - IV Contrast Only In Process Unspecified. EDMS 19:24 Elvira Gill, ROWAN is Primary Nurse. jj7 19:29 Patient has correct armband on for positive identification. Bed in low position. Call j light in reach. 19:29 No provider procedures requiring assistance completed. jj7 19:31 Ji Chance MD is Referral Physician. cp 19:45 IV discontinued, intact, bleeding controlled, No redness/swelling at site. Pressure jj7 dressing applied. Administered Medications: No medications were administered Medication: 19:29 VIS not applicable for this client. jj7 Outcome: 19:32 Discharge ordered by . cp 19:45 Discharged to home ambulatory. jj7 19:45 Condition: good 19:45 Discharge instructions given to patient, Instructed on discharge instructions, medication usage, Demonstrated understanding of instructions, medications, Prescriptions given X 2. 19:51 Patient left the ED. jj7 Signatures: Dispatcher [employer] EDNV AlecCassidy Corey, PA PA cp Prokisch, Amanda RN RN ap3 Elvira Gill RN RN jj7
[2022-05-13 20:01] VITALS: TEMP 97.9; O2SAT 100
[2022-05-13 20:08] VITALS: BP 148/92
== END 2022-05-13 19:51 | disposition home or self-care (01) ==
LOC: ER 14:49
DX: R10.11 Right upper quadrant pain (principal); Z88.0 Allergy status to penicillin
CPT/HCPCS: 85025; 36415; 83690; 80053; 74177; Q9967; 81003; 81015; 99284

== ENCOUNTER 2023-10-27 14:09 | Emergency (ER) | payer BC ==
[2023-10-27 15:16] LABS: Absolute Basophils 0.1 K/uL (0-0.5); Absolute Eosinophils 0.1 K/uL (0-0.5); Absolute Lymphocytes (CBC) 2.6 K/uL (0.7-4.9); Absolute Monocytes 0.6 K/uL (0.1-1.3); Absolute Neutrophil 3.3 K/uL (1.8-8.0); Basophils % 1.4 % (0-1.3); Eosinophils % 2.2 % (0-4.4); Hematocrit 34.4 % (36.0-45.0); Hemoglobin 11.1 g/dL (12.0-15.0); Lymphocytes % 38.2 % (15.3-44.8); MCH 25.6 pg (27.0-35.0); MCHC 32.2 g/dL (32.0-36.0); MCV 79.5 fL (80-100); MPV 10.2 fL (7.6-11.3); Neutrophils % 49.2 % (41.7-73.7); Platelets 199 thou/uL (152-406); RBC Red Blood Cell Count 4.33 M/uL (3.86-4.86); Red Cell Distribution Width 14.8 % (12.1-15.2); Specific Gravity < 1.005 (1.005-1.030); Urine Bilirubin NEGATIVE (Negative); Urine Blood Negative (Negative); Urine Clarity Clear (Clear); Urine Color Colorless (Yellow); Urine Glucose NEGATIVE (Negative); Urine Ketones NEGATIVE (Negative); Urine Microscopic Reflex YN NO UMIC; Urine Nitrite NEGATIVE (Negative); Urine Protein NEGATIVE (Negative); Urine Urobilinogen Normal (Normal); Urine pH 5.5 (5.0-7.0)
--- NOTE | 2023-10-27 15:16 | RAD REPORT ---
EXAM DESCRIPTION: CT - Stone Protocol - 10/27/2023 2:55 pm CLINICAL HISTORY: Flank pain. FLANK PAIN COMPARISON: Abdomen Pelvis W Contrast dated 05/13/2022 TECHNIQUE: Axial images were obtained without oral or IV contrast. Lack of contrast limits solid org an and vascular assessment. The [id number] spans the entirety of the system partially obscuring uppermost abdomen and lung bases. Coronal reformatted images were obtained and reviewed. All CT scans are performed using dose optimization technique as appropriate and may include automated exposure control or mA/KV adjustment according to patient size. FINDINGS: The lower lung pulido are clear. Cholecystectomy clips. Imaged portions of the liver and spleen show no suspicious findings on non-contrast imaging. The panc reas and adrenal glands are normal. No pathologic lymphadenopathy in the abdomen or pelvis. No urinary tract stones or obstructive uropathy. No bowel obstruction, free air, free fluid or abscess. Normal appendix noted.Moderate retained stool throughout the colon. No significant bony abnormality. IMPRESSION: No urinary tract stones or obstructive uropathy.
[2023-10-27 15:32] LABS: ALT/SGPT 17 U/L (13-56); Albumin 3.3 g/dL (3.4-5.0); Albumin/Globulin Ratio 0.9 (1.1-1.8); Alkaline Phosphatase 65 U/L (45-117); Anion Gap 6.6 mEq/L (5.0-15.0); BUN Blood Urea Nitrogen 13 mg/dL (7-18); Bicarbonate 28 mEq/L (21-32); Bilirubin Total 0.5 mg/dL (0.2-1.0); Globulin 3.7 g/dL (2.3-3.5); Glomerular Filtration Rate 99 ml/min (=/>90); Glucose Level 100 mg/dL (74-106); Lipase 17 U/L (13-75); Potassium 3.6 mEq/L (3.5-5.1); Sodium Level 139 mEq/L (136-145)
[2023-10-27 15:39] LABS: AST/SGOT < 10 U/L (15-37)
--- OUTSIDE RECORDS SUMMARY | 2023-10-27 15:52 | XMS REPORT | Continuity of Care Document ---
Author Name Unknown Address [address] [facility] [address] [place] [address] [facility] thconnect Address [address] [facility] 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 Name Role Phone SHIELA OLSON Attending Clinician Unavailable [id number] Attending Clinician Unavailable SVEN SIERRA Attending Clinician Unavailable MATTEO SPIVEY Attending Clinician Unavailable GEO HERNDON Attending Clinician Unavailable [id number] Attending Clinician Unavailable ZEV MARQUEZ Attending Clinician Unavailchristo ABRAMS MD Attending Clinician Unavailab andrez CARMONA, RICK OPTICAL COHERENCE Attending Cl inician Unavailable IRENE CID Attending Clinician UnavailSONJA Gomez Attending Clinician Unava ilAROLDO Good Attending Clinician Unavailable OSVALDO ESTRADA Attending Clinician Un available ANUJ BENTON Attending Clinician Unav ailable [id number] Attending Clinician Unavailable WCLAB Attending Clinician Unavailable JESS TOMAS II Attending Clinician Unavailab INO Roman Attending Clinician Unavaila EDNA Foreman Attending Clinician Unavailable BETTINA AVILES Attending Clinician Unavailable Jimenez Cuellar NP Attending Clinician [phone] Sonja Singh MD Attending Clinician [phone] BRONWYN ORTIZ Attending Clinician Unashardai jackiele 2, [facility] Attending Clinician Unavailable Bronwyn Ortiz MD Attending Clinician [phone] Doctor Unassigned, [place] Attending Clinician U navailable Payers Payer Name Policy Type Policy Number Effective Date Expirati on Date Source [facility]-BC[facility] CAPITATED) 9 [id number] 2023 00:00:00 [employer]ESSENTIAL[employer] 2 [id number] 2021 00:00:00 [facility] [id number] 2014 00:00:00 [employer] [facility] [facility] [id number] 00:00:00 Problems Condition Name Condition Details Condition Category Status Onset Date Resolution Date Last Treatment Date Treating Clinician Comments Source Pernicious anemia - Not Controlled Pernicious anemia - Not Controlled Disease Active 08-18 00:00: 00 Jennifer Padillaold - Externa l 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) 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) Disease Active 08-18 00:00: 00 Jennifer Bunch - Externa l Hot flashes due to menopause Hot flashes due to menopause Disease Active 08-18 00:00: 00 Jennifer Padillaold - Externa l Bilateral hip joint arthritis Bilateral hip joint arthritis Disease Active 01-03 00:00: 00 Jennifer Seblossomold - Externa l Left hip pain - Not Controlled Left hip pain - Not Controlled Disease Active 01-03 00:00: 00 Jennifer Padillaold - Externa l Allergies, Adverse Reactions, Alerts Allergy Name Allergy Type Status Severity Reaction(s) Onset Date Inactive Date Treating Clinician Comments Source Penicill ins Propensi ty to adverse reaction s Active Hives 12-20 00:00: 00 Jennifer Seblossomold - Externa l Wound Dressing Adhesive Propensi ty to adverse reaction s Active 08-20 00:00: 00 Other reaction( s): Rash Jennifer Padillaold - Externa l Penicill in G Propensi ty to adverse reaction s Active Rash 2014-05 00:00: 00 Jennifer Seblossomold - Externa l Penicill in Propensi ty to adverse reaction s Active Rash 2014-05 00:00: 00 [facility] PENICILL IN DRUG INGREDI Active Rash 2014-05 00:00: 00 [facility] Penicill in Propensi ty to adverse reaction s Active Rash 2014-05 00:00: 00 [facility] Social History Social Habit Start Date Stop Date Quantity Comments Source Gender identity 2022-06-19 08:40:11 Identifies as female gender (finding) Jennifer Bunch - External Sexual orientation 2022-06-19 08:40:11 Heterosexual (finding) Jennifer Padillaold - External History SDOH Alcohol Frequency Jennifer swanson - External History SDOH Alcohol Std Drinks Jennifer Ferreira ybold - External History SDOH Alcohol Binge Jennifer Bunch - External Exposure to SARS-CoV-2 (event) Not sure [facility] Alcoholic beverage intake 2023-10-06 00:00:00 2023-10-06 00:00:00 Current drinker of alcohol (finding) Jennifer Bunch - External Alcohol intake 2023-07-13 00:00:00 2023-07-13 00:00:00 Current drinker of alcohol (finding) Jennifer Bunch - External Tobacco use and exposure 2023-06-01 00:00:00 2023-06-01 00:00:00 Smokeless tobacco non-user Jennifer Bunch - External History of Social function 2023-01-23 00:00:00 2023-01-23 00:00:00 Jennifer Bunch - External Alcohol Comment 2021-12-20 00:00:00 2021-12-20 00:00:00 social Jennifer Bunch - External Sex assigned at 1970 00:00:00 1970 00:00:00 F Jennifer Bunch - External Smoking Status Start Date Stop Date Source Unknown if ever smoked [facility] Never smoked tobacco Jennifer Bunch - External Medications Ordered Medication Name Filled Medication Name Start Date Stop Date Current Medication? Ordering Clinician Indication Dosage Frequency Signature (SIG) Comments Components Source Celecoxib 100 MG oral Capsule 09-22 00:00: 00 Yes [id number] 100mg Take 1 capsule (100 mg total) by mouth 2 times daily. Jennifer Bunch - Externa l Pantoprazol e Sodium 40 MG oral Tablet Delayed Response 5-15 00:00: 00 Yes [id number] 40mg TAKE 1 TABLET BY MOUTH EVERY DAY Jennifer hobbs FERROUS SULFATE ER OR 08-18 13:57: 31 Yes Take by mouth. Jennifer hobbs Cyanocobala min (B-12) 1000 MCG oral Capsule 08-18 13:57: 31 Yes Take by mouth. Jennifer hobbs Estradiol 0.05 MG/24HR transdermal PATCH WEEKLY 08-18 00:00: 00 Yes [id number] 1{patch } Place 1 patch onto the skin once a week. Jennifer hobbs Pantoprazol e Sodium 40 MG oral Tablet Delayed Response 08-18 00:00: 00 Yes [id number] 40mg Take 1 tablet (40 mg total) by mouth daily. Jennifer hobbs Celecoxib 200 MG oral Capsule 08-12 00:00: 00 Yes [id number] 200mg Q.5D Take 1 capsule (200 mg total) by mouth 2 times daily as needed for pain (pain). Jennifer hobbs Cyanocobala min (VIT B12) injection 1,000 mcg 07-12 14:30: 00 09-06 13:29 :00 No [id number] 1000ug 1,000 mcg, intramuscu lar, WEEKLY, First dose on Thu07/13/23 at 0830, For 8 doses Jennifer hobbs FERROUS SULFATE ER OR 07-12 07:55: 16 Yes Take by mouth. Jennifer hobbs Cyanocobala min (B-12) 1000 MCG oral Capsule 07-12 07:55: 16 Yes Take by mouth. Jennifer hobbs Celecoxib (CeleBREX) 200 MG oral Capsule 07-12 00:00: 00 Yes [id number] 200mg Take 1 capsule (200 mg total) by mouth 2 times daily. Jennifer hobbs Cholecalcif nasrin (Vitamin D-3) 25 MCG (1000 UT) oral Capsule 07-12 00:00: 00 Yes [id number] 1{tbl} Take 1 tablet by mouth daily. Jennifer hobbs FERROUS SULFATE ER OR 07-06 14:51: 15 Yes Take by mouth. Jennifer hobbs Cyanocobala min (B-12) 1000 MCG oral Capsule 07-06 14:51: 15 Yes Take by mouth. Jennifer hobbs Ibuprofen (MOTRIN) 400 MG oral Tablet 06-16 00:00: 00 Yes TAKE ONE TABLET BY MOUTH EVERY SIX HOURS Jennifer hobbs Ondansetron (ZOFRAN) 4 MG oral TABLET DISPERSIBLE 06-16 00:00: 00 Yes 4mg Take 1 tablet (4 mg total) by mouth every 6 (six) hours. Jennifer hobbs FERROUS SULFATE ER OR 2022-05 14:26: 35 Yes Take by mouth. Jennifer hobbs Cyanocobala min (B-12) 1000 MCG oral Capsule 2022-05 14:26: 35 Yes Take by mouth. Jennifer hobbs Na Sulfate-K Sulfate-Mg Sulf (SUPREP BOWEL PREP KIT) 17.5-3.13-1 .6 GM/177ML oral Solution 2022-05 00:00: 00 Yes [id number] Instructio ns provided to patient. Follow instructio ns provided by provider.. Jennifer hobbs Cyanocobala min (B-12) 1000 MCG oral Capsule 01-05 10:52: 09 Yes Take by mouth. Jennifer hobbs FERROUS SULFATE ER OR 01-05 10:51: 49 Yes Take by mouth. Jennifer hobbs Estrogens Conjugated (Premarin) 0.625 MG oral Tablet 01-05 00:00: 00 08-18 00:00 :00 No [id number] .625mg Take 1 tablet (0.625 mg total) by mouth daily. Jennifer hobbs methylPREDN ISolone 4 MG oral Tablet Therapy Pack 09-30 00:00: 00 Yes [id number] 1{fátima} Take 1 fátima by mouth See Admin Instructio ns Use as directed Jennifer hobbs methylPREDN ISolone 4 MG oral Tablet Therapy Pack 09-30 00:00: 00 12-08 00:00 :00 No [id number] 1{fátima} Take 1 fátima by mouth See Admin Instructio ns Use as directed Jennifer hobbs Doxycycline Hyclate 100 MG oral Tablet 2021-05 00:00: 00 Yes [id number] 100mg Take 1 tablet (100 mg total) by mouth 2 times daily Jennifer hobbs Pseudoephed rine-Guaife nesin (Mucinex D Max Strength) 120-1200 MG oral Tablet 12 Hour Sustained Release 2021-05 00:00: 00 Yes [id number] 1{tbl} Take 1 tablet by mouth every 12 hours Jennifer hobbs methylPREDN ISolone 4 MG oral Tablet Therapy Pack 2021-05 00:00: 00 Yes [id number] Take 1 fátima by mouth See Admin Instructio ns Use as directed Jennifer hobbs Pantoprazol e Sodium 40 MG oral Tablet Delayed Response 2021-05 1-15 00:00: 00 12-08 00:00 :00 No [id number] 40mg Take 1 tablet (40 mg total) by mouth daily Jennifer hobbs Meloxicam 7.5 MG oral Tablet 12-20 00:00: 00 04-16 00:00 :00 No [id number] 7.5mg Take 1 tablet (7.5 mg total) by mouth daily Jennifer hobbs ibuprofen (MOTRIN) 600 mg tablet 09-11 00:00: 00 Yes 600mg Take 1 tablet by mouth every 6 (six) hours as needed for Pain (scale 4-6). [facility] acetaminoph en-codeine (TYLENOL #3) 300-30 mg tablet 09-11 00:00: 00 Yes 1{tbl} Take 1 tablet by mouth every 4 (four) hours as needed for Pain (scale 4-6). [facility] Vital Signs Vital Name Observation Time Observation Value Comments S ource Systolic blood pressure 2023-10-06 19:48:00 131 mm[Hg] Jennifer Seybo ld - External Diastolic blood pressure 2023-10-06 19:48:00 77 mm[Hg] Jennifer Seybo ld - External Heart rate 2023-10-06 19:48:00 81 /min Kelse y Seybold - External Body temperature 2023-10-06 19:48:00 36.5 Esha Jennifer Seybold - External Respiratory rate 2023-10-06 19:48:00 18 /min Jennifer Seybold - External Body height 2023-10-06 19:48:00 167.6 cm Aleida ey Seybold - External Body weight 2023-10-06 19:48:00 85.548 kg Aleida ey Seybold - External BMI 2023-10-06 19:48:00 30.44 kg/m2 Aleida ey Seybold - External Oxygen saturation in Arterial blood by Pulse oximetry 2023-10-06 19:48:00 98 /min Jennifer Seybo ld - External Systolic blood pressure 2023-08-19 18:54:00 122 mm[Hg] Jennifer Seybo ld - External Diastolic blood pressure 2023-08-19 18:54:00 74 mm[Hg] Jennifer Seybo ld - External Heart rate 2023-08-19 18:54:00 78 /min Kelse y Seybold - External Body temperature 2023-08-19 18:54:00 36.67 Esha Jennifer Seybold - External Respiratory rate 2023-08-19 18:54:00 16 /min Jennifer Seybold - External Body height 2023-08-19 18:54:00 167.6 cm Aleida ey Seybold - External Body weight 2023-08-19 18:54:00 88.962 kg Aleida ey Seybold - External BMI 2023-08-19 18:54:00 31.66 kg/m2 Aleida ey Seybold - External Oxygen saturation in Arterial blood by Pulse oximetry 2023-08-19 18:54:00 98 /min Jennifer Seybo ld - External Systolic blood pressure 2023-07-13 13:52:00 124 mm[Hg] Jennifer Seybo ld - External Diastolic blood pressure 2023-07-13 13:52:00 70 mm[Hg] Jennifer Seybo ld - External Heart rate 2023-07-13 13:52:00 91 /min Kelse y Seybold - External Body temperature 2023-07-13 13:52:00 36.5 Esha Jennifer Seybold - External Respiratory rate 2023-07-13 13:52:00 14 /min Jennifer Seybold - External Body height 2023-07-13 13:52:00 167.6 cm Aleida ey Seybold - External Body weight 2023-07-13 13:52:00 86.637 kg Aleida ey Seybold - External BMI 2023-07-13 13:52:00 30.83 kg/m2 Aleida ey Seybold - External Systolic blood pressure 2023-07-06 20:46:00 126 mm[Hg] Jennifer Seybo ld - External Diastolic blood pressure 2023-07-06 20:46:00 74 mm[Hg] Jennifer Seybo ld - External Heart rate 2023-07-06 20:46:00 80 /min Kelse y Seybold - External Body temperature 2023-07-06 20:46:00 36.56 Esha Jennifer Seybold - External Respiratory rate 2023-07-06 20:46:00 18 /min Jennifer Seybold - External Body height 2023-07-06 20:46:00 167.6 cm Aleida ey Seybold - External Body weight 2023-07-06 20:46:00 87.091 kg Aleida ey Seybold - External BMI 2023-07-06 20:46:00 30.99 kg/m2 Aleida ey Seybold - External Oxygen saturation in Arterial blood by Pulse oximetry 2023-07-06 20:46:00 96 /min Ejnnifer Seybo ld - External Systolic blood pressure 2023-03-30 20:32:00 120 mm[Hg] Jennifer Seybo ld - External Diastolic blood pressure 2023-03-30 20:32:00 82 mm[Hg] Jennifer Seybo ld - External Heart rate 2023-03-30 20:32:00 76 /min Kelse y Seybold - External Body temperature 2023-03-30 20:32:00 36.78 Esha Jennifer Seybold - External Respiratory rate 2023-03-30 20:32:00 16 /min Jennifer Seybold - External Body height 2023-03-30 20:32:00 167.6 cm Aleida ey Seybold - External Body weight 2023-03-30 20:32:00 85.276 kg Aleida ey Seybold - External BMI 2023-03-30 20:32:00 30.34 kg/m2 Aleida ey Seybold - External Systolic blood pressure 2023-01-05 15:50:00 137 mm[Hg] Jennifer Seybo ld - External Diastolic blood pressure 2023-01-05 15:50:00 86 mm[Hg] Jennifer Seybo ld - External Heart rate 2023-01-05 15:50:00 88 /min Kelse y Seybold - External Body temperature 2023-01-05 15:50:00 36.83 Esha Jennifer Seybold - External Respiratory rate 2023-01-05 15:50:00 18 /min Jennifer Seybold - External Body height 2023-01-05 15:50:00 167.6 cm Aleida ey Seybold - External Body weight 2023-01-05 15:50:00 83.915 kg Aleida ey Seybold - External BMI 2023-01-05 15:50:00 29.86 kg/m2 Aleida ey Seybold - External Systolic blood pressure 2022-12-08 18:48:00 118 mm[Hg] Jennifer Seybo ld - External Diastolic blood pressure 2022-12-08 18:48:00 80 mm[Hg] Jennifer Seybo ld - External Heart rate 2022-12-08 18:48:00 80 /min Kelse y Seybold - External Body temperature 2022-12-08 18:48:00 36.5 Esha Jennifer Seybold - External Respiratory rate 2022-12-08 18:48:00 16 /min Jennifer Seybold - External Body height 2022-12-08 18:48:00 167.6 cm Aleida ey Seybold - External Body weight 2022-12-08 18:48:00 85.276 kg Aleida ey Seybold - External BMI 2022-12-08 18:48:00 30.34 kg/m2 Aleida ey Seblossomold - External Oxygen saturation in Arterial blood by Pulse oximetry 2022-12-08 18:48:00 97 /min Jennifer Gupta ld - External Procedures Procedure Date / Time Performed Performing Clinicia n Source PHYSICIAN ORDERS 2019-12-22 05:01:00 Doctor Unacasey signed, [place] [facility] Encounters Start Date/Time End Date/Time Encounter Type Admission Type Attending [facility] Care Department Encounter ID Source 2023-11-20 09:30:00 2023-11-20 09:30:00 Outpatient SHIELA OLSON [id number] Jennifer Seybyulisa 2023-10-06 15:55:00 2023-10-06 15:55:00 Outpatient [id number] JENNIFER OLIVER [id number] Jennifer Seybyulisa 2023-10-06 15:00:00 2023-10-06 15:00:00 Outpatient SVEN SIERRA [id number] Jennifer Seybyulisa 2023-09-28 14:45:00 2023-09-28 14:45:00 Outpatient MATTEO SPIVEY [id number] Jennifer Seybyulisa 2023-09-18 00:00:00 2023-09-18 00:00:00 Outpatient GEO HERNDON [id number] Jennifer Seybyulisa 2023-09-08 15:00:00 2023-09-08 15:00:00 Outpatient JENNIFER OLIVER [id number] Jennifer Seybyulisa 2023-09-04 14:45:00 2023-09-04 14:45:00 Outpatient SHIELA OLSON [id number] Jennifer Seybyulisa 2023-09-03 15:00:00 2023-09-03 15:00:00 Outpatient JENNIFER OLIVER [id number] Jennifer Seybyulisa 2023-09-03 08:00:00 2023-09-03 08:00:00 Outpatient LAB90 JENNIFER OLIVER [id number] Jennifer Seybyulisa 2023-09-02 15:30:00 2023-09-02 15:30:00 Outpatient ZEV MARQUEZ [id number] Jennifer Seybold 2023-08-26 15:30:00 2023-08-26 15:30:00 Outpatient JIMMYZEV JENNIFER OLIVER [id number] Jennifer Seybyulisa 2023-08-21 00:00:00 2023-08-21 00:00:00 Outpatient PATRIC MATTEO JENNIFER OLIVER [id number] Jennifer Seybold 2023-08-21 00:00:00 2023-08-21 00:00:00 Outpatient MD JENNIFER JAIMES [id number] Jennifer Seybold 2023-08-20 16:10:00 2023-08-20 16:10:00 Outpatient TOMOGRAPHY, RICK OLIVER [id number] Jennifer Seybold 2023-08-20 15:40:00 2023-08-20 15:40:00 Outpatient IRENE CID [id number] Jennifer Seybold 2023-08-19 14:00:00 2023-08-19 14:00:00 Outpatient [facility] HERNDON [id number] [facility] 2023-08-13 15:30:00 2023-08-13 15:30:00 Outpatient JIMMY, ZEV JENNIFER OLIVER [id number] Jennifer Seybold 2023-08-10 14:00:00 2023-08-10 14:00:00 Outpatient KATRINA GEO OLIVER [id number] Jennifer Seybold 2023-08-09 00:00:00 2023-08-09 00:00:00 Outpatient GEO HERNDON [id number] Jennifer Seybold 2023-08-06 15:30:00 2023-08-06 15:30:00 Outpatient JIMMY ZEV OLIVER [id number] Jennifer Seybold 2023-07-30 15:30:00 2023-07-30 15:30:00 Outpatient JIMMY, ZEV OLIVER [id number] Jennifer Seybold 2023-07-23 15:30:00 2023-07-23 15:30:00 Outpatient JIMMY, ZEV OLIVER [id number] Jennifer Seybold 2023-07-22 15:00:00 2023-07-22 15:00:00 Outpatient SONJA SINGHSEY [id number] Jennifer Seybold 2023-07-13 08:00:00 2023-07-13 08:00:00 Outpatient INGEGEO Hobbs JENNIFER OLIVER [id number] Jennifer Seybold 2023-07-06 15:30:00 2023-07-06 15:30:00 Outpatient LAB90 JENNIFER OLIVER [id number] Jennifer Seybold 2023-07-06 14:45:00 2023-07-06 14:45:00 Outpatient SONJA SINGH JENNIFER OLIVER [id number] Jennifer Seybold 2023-06-09 00:00:00 2023-06-09 00:00:00 Outpatient JENNIFER OLIVER [id number] Jennifer Seybold 2023-06-04 10:30:00 2023-06-04 10:30:00 Outpatient MATTEO SPIVEY [id number] Jennifer Seybold 2023-05-28 00:00:00 2023-05-28 00:00:00 Outpatient MD JENNIFER JAIMES [id number] Jennifer Seybold 2023-05-20 00:00:00 2023-05-20 00:00:00 Outpatient JENNIFER OLIVER [id number] Jennifer Seybold 2023-05-19 00:00:00 2023-05-19 00:00:00 Outpatient AROLDO GIBSON [id number] Jennifer Seybold 2023-04-30 15:00:00 2023-04-30 15:00:00 Outpatient LAB90 JENNIFER OLIVER [id number] Jennifre Seybold 2023-04-28 00:00:00 2023-04-28 00:00:00 Outpatient OSVALDO ESTRADA [id number] Jennifer Seybold 2023-03-30 14:45:00 2023-03-30 14:45:00 Outpatient MATTEO SPIVEY [id number] Jennifer Seybold 2023-03-30 00:00:00 2023-03-30 00:00:00 Outpatient JENNIFER OLIVER [id number] Jennifer Seybold 2023-01-30 00:00:00 2023-01-30 00:00:00 Outpatient ANUJ BENTON JENNIFER OLIVER [id number] [facility] 2023-01-29 00:00:00 2023-01-29 00:00:00 Outpatient ANUJ BENTON JENNIFER OLIVER [id number] [facility] 2023-01-28 11:00:00 2023-01-28 11:00:00 Outpatient JENNIFER OLIVER [id number] [facility] 2023-01-27 14:30:00 2023-01-27 14:30:00 Outpatient TRED47 JENNIFER OLIVER [id number] [facility] 2023-01-23 09:25:00 2023-01-23 09:25:00 Outpatient ANUJ BENTON JENNIFER OLIVER [id number] [facility] 2023-01-05 11:30:00 2023-01-05 11:30:00 Outpatient WCLAB [id number] [facility]-05 10:45:00 2023-01-05 10:45:00 Outpatient GENOVEVA JESS ABDULLAHI [id number] [facility] 2022-12-12 00:00:00 2022-12-12 00:00:00 Outpatient SONJA SINGH [id number] [facility] 2022-12-10 00:00:00 2022-12-10 00:00:00 Outpatient SONJA SINGH [id number] [facility] 2022-12-09 14:00:00 2022-12-09 14:00:00 Outpatient GEO HERNDON [id number] [facility] 2022-12-08 14:50:00 2022-12-08 14:50:00 Outpatient ROEL OLIVER [id number] [facility] 2022-12-08 14:00:00 2022-12-08 14:00:00 Outpatient SONJA SINGH [id number] [facility] 2022-09-30 11:30:00 2022-09-30 11:30:00 Outpatient INO MANLEYSEY [id number] [facility] 2022-06-19 09:30:00 2022-06-19 09:30:00 Outpatient EDNA SMITH JENNIFER OLIVER [id number] [facility] 2022-06-12 00:00:00 2022-06-12 00:00:00 Outpatient JENNIFER OLIVER [id number] [facility] 2022-05-13 15:30:00 2022-05-13 15:30:00 Outpatient SONJA SINGH [id number] [facility] 2022-05-13 00:00:00 2022-05-13 00:00:00 Outpatient SONJA SINGH [id number] [facility] 2022-04-18 10:00:00 2022-04-18 10:00:00 Outpatient STACIE HERNDONY [id number] 2022-04-17 00:00:00 2022-04-17 00:00:00 Outpatient TRACI BETTINAMAYUR OLIVER [id number] [facility] 2022-04-16 13:30:00 2022-04-16 13:30:00 Outpatient BETTINA AVILES [id number] [facility] 2022-04-16 00:00:00 2022-04-16 00:00:00 Outpatient JENNIFER OLIVER [id number] [facility] 2022-04-15 00:00:00 2022-04-15 00:00:00 Outpatient SONJA SINGH [id number] [facility] 2022-03-10 13:30:00 2022-03-10 13:30:00 Outpatient SONJA SINGH [id number] Jennifer Seybold 2022-02-28 10:45:00 2022-02-28 10:45:00 Outpatient LAB90 JENNIFER OLIVER [id number] Jennifer Seybold 2022-02-24 15:15:00 2022-02-24 15:15:00 Outpatient LAB90 JENNIFER OLIVER [id number] Jennifer Seybold 2022-02-24 14:45:00 2022-02-24 14:45:00 Outpatient SONJA SINGH JENNIFER [id number] Jennifer Ferreirayulisa 2022-01-09 10:55:00 2022-01-09 11:03:47 E-Visit Jimenez Cuellar [id number] Jennifer Ferreirayulisa 2022-01-06 00:00:00 2022-01-06 00:00:00 Outpatient SONJA SINGH JENNIFER OLIVER [id number] Jennifer Ferreirayulisa 2022-01-03 15:15:00 2022-01-03 15:30:00 Office Visit Sonja Singh [id number] [facility] 2021-12-20 15:45:00 2021-12-20 15:45:00 Outpatient LAB90 [facility]IVER [id number] [facility] 2021-12-20 15:00:00 2021-12-20 15:00:00 Outpatient SONJA SINGH JENNIFER OLIVER [id number] [facility] 2021-12-17 15:30:00 2021-12-17 15:30:00 Outpatient SONJA SINGH JENNIFER OLIVER [id number] [facility] 2021-12-16 11:00:00 2021-12-16 11:00:00 Outpatient SONJA SINGH JENNIFER OLIVER [id number] [facility] 2020-06-18 00:00:00 2020-06-18 00:00:00 Outpatient R BRONWYN [facility] [id number] [facility] 2019-12-22 16:15:00 2019-12-22 16:15:00 Outpatient R BRONWYN DE LA ROSA [facility] [id number] [facility] 2019-12-22 14:28:28 2019-12-22 14:43:28 Statue Carver Visit 2, Adc Lab Bronwyn De La Rosa [facility] 1.2.114 [id number] [facility] 2019-12-22 00:00:00 2019-12-22 00:00:00 Orders Only Doctor Unassigned, [place] [facility] 1.20.114 350.1.13.10 [id number] [id number] [facility] Notes Date/Time Note Provider Source 2023-10-06 14:48:09 0233-69-48K79:48:09F ormatting of this note is different from the original.Chief ComplaintPatient presents withHematology ConsultElevated immunoglobulin A; referred by Sonja Singh [place]DL[place] [address]-5Iviwo WlofOE5091-60-66S57:56:28Nurse [id number]. [id number] for patient [id number] NoteLNNARRATIVEFormatted C-CDA narrative textAscension [facility] [facility] [id number] [id number]:56:281.2.840.11 4350.1.72.3.15|[id number] [id number] [facility] 2023-08-19 13:58:22 2746-09-03G12:58:22F ormatting of this note is different from the original.Chief ComplaintPatient presents withPhysicalPatient is not fasting todaySammie Cuencaectronically signed by Yesenia Arshad LVN at 08/19/2023 1:58 PM [id number] [id number]:58:41Nurse [id number]. [id number] for patient qecc16380-7Owukj NoteLNNARRATIVEFormatted C-CDA narrative text[address] [id number] [id number]:58:411.2.840.11 4350.1.72.3.15|1.2.840.311310.1.1 [id number] [facility] 2023-07-13 08:39:50 9120-17-33O76:39:50F ormatting of this note might be different from the original.Patients allergies assessed,administered Cyanocobalamin 1000 mcg IM to left outer quadrant gluteal and tolerated well. 62020-9Mthmc EhulWK4992-36-86L32:39:58Nurse NoteTXT1.2.840.841649.1.13.131.2. [id number] for patient [id number] NoteLNNARRATIVEFormatted C-CDA narrative [id number] Horn LVNAscension [facility] [id number] [id number]:39:581.2.840.11 4350.1.72.3.15|1.2.840.954466.1.1 3.131.2.7.2.727879_[id number] Anushka Horn LVN [facility] 2023-07-13 07:55:19 5856-45-57O80:55:19F ormatting of this note is different from the original.Chief ComplaintPatient presents withFollow-up1 week follow up on abdominal pain. She says that [place] [address]-3Atzuo EmngLS0158-60-46F63:55:36Nurse NoteTXT1.2.840.282319.1.13.131.2. 7.2.800997|[id number] for patient uuju62780-4Upkmd NoteLNNARRATIVEFormatted C-CDA narrative [id number] [id number]:55:361.2.840.11 4350.1.72.3.15|1.2.840.574625.1.1 3.131.2.7.2.727879_[id number] [facility] 2023-07-06 14:55:56 0206-43-65E32:55:56F ormatting of this note is different from the original.Chief ComplaintPatient presents withFatigueAbdominal PainAbdominal pain for two weeksSammie Cuencaectronically signed by Yesenia Arshad LVN at 07/06/2023 2:56 PM [id number] QhlrAP9236-98-77T71:56:23Nurse NoteTXT1.2.840.022145.1.13.131.2. 7.2.647059|[id number] for patient fxdx68238-3Kxlbs NoteLNNARRATIVEFormatted C-CDA narrative text[id number] [id number]:56:231.2.840.11 4350.1.72.3.15|1.2.840.312075.1.1 3.131.2.7.2.727879_[id number] [facility] 2023-01-05 10:51:18 7109-28-16C11:51:18F ormatting of this note is different from the original.Chief Complaint Patient presents with Menopausal Symptoms Hot flashes, nigh [place] [address]-9Bwzhj VscfZW4546-69-62Q06:54:06Nurse NoteTXT1.2.840.529144.1.13.131.2. 7.2.231116|[id number] for patient rmeo17194-6Itbxa [id number] CGRT6825-27-99J34:54:061.2.840.11 4350.1.72.3.15|1.2.840.811945.1.1 3.131.2.7.2.727879_[id number] [facility] 2022-12-08 13:51:33 2832-80-56U98:51:33F ormatting of this note might be different from the original.Patient is here to be seen for C/O her ears feeling clogged and ringing x 1 week. VSS, no daily medications taken. 21983-1Sfhrb PpqgJG2763-89-86F20:52:36Nurse NoteTXT1.2.840.626476.1.13.131.2. 7.2.252601|[id number] for patient taln08596-3Gwgpk [id number] Cresencio[id number] [id number]:52:361.2.840.11 4350.1.72.3.15|1.2.840.123512.1.1 3.131.2.7.2.727879_[id number] Yari Dupont [facility]"
[2023-10-27 17:02] VITALS: BP 147/70; TEMP 97.1; O2SAT 99
--- NOTE | 2023-10-27 18:12 | EDPHYS ---
Physician Documentation [facility] Name: Abby Fleming Age: 53 yrs Sex: Female : 1970 Arrival Date: 10/27/2023 Time: 14:09 Bed 12 Private MD: ED Physician Aubrey Jules HPI: 10/26 19:29 This 53 yrs old Female presents to ER via Ambulatory with complaints of Abdominal Pain, kb Flank Pain. 19:29 Pt is a 53 year old female who presents for right flank pain that started today. kb Reports nausea and diarrhea. Denies fever, urinary symptoms, abd pain. Historical: - Allergies: 14:14 PENICILLINS; ll1 - PMHx: 14:14 Anemia; Gastroesophageal reflux disease; Ovarian cyst; ll1 - PSHx: 14:14 Cholecystectomy; ll1 - Immunization history:: Adult Immunizations up to date. - Infectious Disease History:: Denies. - Social history:: Smoking status: Patient denies any tobacco usage or history of. ROS: 19:28 Constitutional: As per HPI kb Exam: 19:28 Constitutional: This is a well developed, well nourished patient who is awake, alert, kb and in no acute distress. Head/Face: Normocephalic, atraumatic. ENT: Moist Mucous membranes Cardiovascular: Regular rate Respiratory: Respirations even and unlabored. No increased work of breathing. Talking in full sentences Abdomen/GI: Soft, non-tender. No distention Skin: Warm, dry with normal turgor. Normal color. MS/ Extremity: Pulses equal, no cyanosis. Neurovascular intact. Full, normal range of motion. Neuro: Awake and alert, GCS 15, oriented to person, place, time, and situation. Moves all extremities. Normal gait. 19:28 Back: CVA tenderness, that is mild, is noted on the right, Vital Signs: 14:15 BP 158 / 88; Pulse 70; Resp 17; Temp 97.1; Pulse Ox 100% ; Weight 85.28 kg; Height 5 ll1 ft. 6 in. ; Pain 6/10; 16:22 BP 147 / 70; Pulse 68; Resp 18; Pulse Ox 99% ; as6 14:15 Body Mass Index 30.34 (85.28 kg, 167.64 cm) ll1 14:15 Pain Scale: Adult ll1 MDM: 14:12 Patient medically screened. kb 19:29 Differential diagnosis: Pyelonephritis, Ureterolithiasis, urinary tract infection. Data kb reviewed: vital signs, nurses notes. Counseling: I had a detailed discussion with the patient and/or guardian regarding the historical points, exam findings, and any diagnostic results supporting the discharge/admit diagnosis, lab results, radiology results, the need for outpatient follow up, a family practitioner, to return to the emergency department if symptoms worsen or persist or if there are any questions or concerns that arise at home. 10/26 14:45 Order name: CBC with Diff; Complete Time: 15:26 kb 10/26 14:45 Order name: CMP; Complete Time: 15:43 kb 10/26 14:45 Order name: Lipase; Complete Time: 15:43 kb 10/26 14:45 Order name: Urinalysis w/ reflexes; Complete Time: 15:17 kb 10/26 14:45 Order name: CT Stone Protocol; Complete Time: 15:17 kb 10/26 14:45 Order name: IV Saline Lock; Complete Time: 15:08 kb 10/26 14:45 Order name: Labs collected and sent; Complete Time: 15:08 kb Administered Medications: 15:08 Drug: TORadol - Ketorolac IVP 15 mg IVP once Route: IVP; Site: right antecubital; as6 16:22 Follow up: Response: No adverse reaction as6 15:08 Drug: Ondansetron IVP 4 mg IVP once; over 2 minutes Route: IVP; Site: right antecubital;as6 16:22 Follow up: Response: No adverse reaction as6 Disposition Summary: 10/27/23 16:07 Discharge Ordered Notes: Location: Home kb Condition: Stable kb Diagnosis - Right flank pain kb Followup: kb - With: Emergency Department - When: As needed - Reason: Worsening of condition Followup: kb - With: Private Physician - When: 2 - 3 days - Reason: Recheck today's complaints, Continuance of care, Re-evaluation by your physician Discharge Instructions: - Discharge Summary Sheet kb - Flank Pain, Adult, Cnod-dd-Xrjv kb Forms: - Medication Reconciliation Form kb - Antibiotic Education kb - Prescription Opioid Use kb - Patient Portal Instructions kb - Leadership Thank You Letter kb Signatures: Dispatcher [employer] Michelle Dugan FNP-C FNP-Shana Richard Sanabria, RN RN ll1 Adrián Greene RN RN as6 Corrections: (The following items were deleted from the chart) 14:46 14:46 CBC+H.LAB.BRZ ordered. EDMS EDMS 14:46 14:46 COMPREHENSIVE METABOLIC PANEL+C.LAB.BRZ ordered. EDMS EDMS 14:46 14:46 LIPASE+C.LAB.BRZ ordered. EDMS EDMS 14:46 14:46 Urinalysis+U.LAB.BRZ ordered. EDMS EDMS 19:30 19:29 Pt is a 53 year old female who presents for right flank pain that started today.. kb kb
--- NOTE | 2023-10-27 18:12 | ER ---
Nurse's Notes [facility] Name: Abby Fleming Age: 53 yrs Sex: Female : 1970 Arrival Date: 10/27/2023 Time: 14:09 Bed 12 Private MD: Diagnosis: Right flank pain Presentation: 10/26 14:15 Chief complaint: Patient states: R flank pain with nausea and diarrhea started today. ll1 Coronavirus screen: Client denies travel out of the [place] in the last 14 days. At this time, the client does not indicate any symptoms associated with coronavirus-19. Ebola Screen: Patient denies travel to an Ebola-affected area in the 21 days before illness onset. Initial Sepsis Screen: Does the patient meet any 2 criteria? No. Patient's initial sepsis screen is negative. Does the patient have a suspected source of infection? No. Patient's initial sepsis screen is negative. Risk Assessment: Do you want to hurt yourself or someone else? Patient reports no desire to harm self or others. Onset of symptoms was October 27, 2023. 14:15 Method Of Arrival: Ambulatory 1 14:15 Acuity: MELQUIADES 3 ll1 Historical: - Allergies: 14:14 PENICILLINS; ll1 - PMHx: 14:14 Anemia; Gastroesophageal reflux disease; Ovarian cyst; ll1 - PSHx: 14:14 Cholecystectomy; ll1 - Immunization history:: Adult Immunizations up to date. - Infectious Disease History:: Denies. - Social history:: Smoking status: Patient denies any tobacco usage or history of. Screenin:59 [facility] ED Fall Risk Assessment (Adult) History of falling in the last 3 months, as6 including since admission No falls in past 3 months (0 pts) Confusion or Disorientation No (0 pts) Intoxicated or Sedated No (0 pts) Impaired Gait No (0 pts) Mobility Assist Device Used No (0 pt) Altered Elimination No (0 pt) Score/Fall Risk Level 0 - 2 = Low Risk Oriented to surroundings, Maintained a safe environment, Educated pt \T\ family on fall prevention, incl call for assistance when getting out of bed, Assessed \T\ reinforced patient's understanding of fall precautions. Abuse screen: Denies threats or abuse. Denies injuries from another. Nutritional screening: No deficits noted. Tuberculosis screening: No symptoms or risk factors identified. Assessment: 15:00 General: Appears in no apparent distress. comfortable, Behavior is calm, cooperative. as6 Pain: Complains of pain in right flank. GI: Reports diarrhea, nausea. : Reports pain in right flank(s). 15:59 Reassessment: Patient appears in no apparent distress at this time. Patient and/or as6 family updated on plan of care and expected duration. Pain level reassessed. Patient is alert, oriented x 3, equal unlabored respirations, skin warm/dry/pink. Patient states feeling better. Vital Signs: 14:15 BP 158 / 88; Pulse 70; Resp 17; Temp 97.1; Pulse Ox 100% ; Weight 85.28 kg; Height 5 ll1 ft. 6 in. ; Pain 6/10; 16:22 BP 147 / 70; Pulse 68; Resp 18; Pulse Ox 99% ; as6 14:15 Body Mass Index 30.34 (85.28 kg, 167.64 cm) ll1 14:15 Pain Scale: Adult ll1 ED Course: 14:11 Patient arrived in ED. rg4 14:12 Michelle Whitmore FNP-C is PHCP. kb 14:12 Aubrey Jules MD is Attending Physician. kb 14:16 Triage completed. ll1 14:16 Adrián Greene, ROWAN is Primary Nurse. as6 14:56 CT Stone Protocol In Process Unspecified. EDMS 15:08 CBC with Diff Sent. as6 15:08 CMP Sent. as6 15:08 Lipase Sent. as6 15:08 Urinalysis w/ reflexes Sent. as6 15:08 Inserted saline lock: 20 gauge in right antecubital area, using aseptic technique. as6 Blood collected. 15:08 Arm band placed on. as6 15:59 Placed in gown. Bed in low position. Call light in reach. as6 16:23 No provider procedures requiring assistance completed. IV discontinued, intact, as6 bleeding controlled, No redness/swelling at site. Pressure dressing applied. 16:23 Provided Education on: follow up. as6 Administered Medications: 15:08 Drug: TORadol - Ketorolac IVP 15 mg IVP once Route: IVP; Site: right antecubital; as6 16:22 Follow up: Response: No adverse reaction as6 15:08 Drug: Ondansetron IVP 4 mg IVP once; over 2 minutes Route: IVP; Site: right antecubital;as6 16:22 Follow up: Response: No adverse reaction as6 Medication: 16:00 VIS not applicable for this client. as6 Outcome: 16:07 Discharge ordered by . eveiln 16:23 Discharged to home ambulatory, as6 16:23 Condition: stable 16:23 Discharge instructions given to patient, Instructed on discharge instructions, follow up and referral plans. Demonstrated understanding of instructions, follow-up care, 16:23 Patient left the ED. as6 Signatures: Dispatcher [employer] EDMS Michelle Whitmore, ENERGY EFFICIENCY ENGINEER-C VALDEZ-Delia Daugherty rg4 Richard Sanabria, RN RN ll1 Adrián Greene RN RN as6
== END 2023-10-27 16:23 | disposition home or self-care (01) ==
LOC: ER 14:09
DX: R10.9 Unspecified abdominal pain (principal)
CPT/HCPCS: 36415; 74176; 76377; 80053; 81003; 83690; 85025

== ENCOUNTER 2024-10-01 09:47 | Emergency (ER) | payer BC ==
--- OUTSIDE RECORDS SUMMARY | 2024-10-01 09:51 | XMS REPORT | Continuity of Care Document ---
Author Name Unknown Address [address] [facility] [address] [place] [address] [facility] Address [address] [facility] [place] [address] Care Team Providers Care Regulatory Coordinator Name Role Phone CARLA GONZALEZ Attending Clinician Unavail able JESUS WILD Attending Clinician Unavailable GEO HERNDON Attending Clinician Unavailable AROLDO GIBSON Attending Clinician Unavailable DEE GARCIA Attending Clinician Unavaila ZHOU Vaughn Attending Clinician Unavailab TODD Morin Attending Clinician Unavailable LAB90 Attending Clinician Unavailable MD JOSE ALBERTO Attending Clinician Unavailab SHIELA Ortiz Attending Clinician Unavailable [id number] Attending Clinician Unavailable SVEN SIERRA Attending Clinician Unavailable MATTEO SPIVEY Attending Clinician Unavailable [facility] Attending Clinician Unavailabl e [facility] Attending Cl inician Unavailable IRENE CID Attending Clinician Unavaila SONJA Gillespie Attending Clinician Unava ilOSVALDO Coleman Attending Clinician Un available ANUJ BENTON Attending Clinician Unav ailable TRED47 Attending Clinician Unavailable WCLAB Attending Clinician Unavailable JESS TOMAS II Attending Clinician Unavailab INO Roman Attending Clinician Unavaila EDNA Foreman Attending Clinician Unavailable BETTINA AVILES Attending Clinician Unavailable Jimenez Cuellar NP Attending Clinician Samantha EVANGELISTA, Sonja Becker Attending Clinician [phone] BRONWYN ORTIZ Attending Clinician Kelly murry 2, [facility] Attending Clinician Unavailable Bronwyn Ortiz MD Attending Clinician [phone] Doctor Unassigned, Pump Back Attending Clinician U navailable Payers Payer Name Policy Type Policy Number Effective Date Expirati on Date Source [facility] CAPIT[facility]) 9 [id number] 2023 00:00:00 [employer] 2 [id number] 2021 00:00:00 [facility] [id number] 2014 00:00:00 [facility] [id number] 00:00:00 Problems Condition Name Condition Details Condition Category Status Onset Date Resolution Date Last Treatment Date Treating Clinician Comments Source Stomach flu Stomach flu Disease Active 2023-05 00:00: 00 Jennifer Seybold - Externa l Pernicious anemia - Not Controlled Pernicious anemia - Not Controlled Disease Active 08-18 00:00: 00 Jennifer Seybold - Externa l 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) 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) Disease Active 08-18 00:00: 00 Jennifer Seybold - Externa l Hot flashes due to menopause Hot flashes due to menopause Disease Active 08-18 00:00: 00 Jennifer Seybold - Externa l Bilateral hip joint arthritis Bilateral hip joint arthritis Disease Active 01-03 00:00: 00 Jennifer Seybold - Externa l Left hip pain - Not Controlled Left hip pain - Not Controlled Disease Active 01-03 00:00: 00 Jennifer Padillaold - Externa l Allergies, Adverse Reactions, Alerts Allergy Name Allergy Type Status Severity Reaction(s) Onset Date Inactive Date Treating Clinician Comments Source Penicill ins Propensi ty to adverse reaction s Active Hives 12-20 00:00: 00 Jennifer Bunch - Externa l Wound Dressing Adhesive Propensi ty to adverse reaction s Active 2018-0 4-12 00:00: 00 Other reaction( s): Rash Jennifer Bunch - Externa l Penicill in G Propensi ty to adverse reaction s Active Rash 2014-05 0-05 00:00: 00 Jennifer Padillaold - Externa l Penicill in Propensi ty to adverse reaction s Active Rash 2014-05 0-05 00:00: 00 [facility] PENICILL IN DRUG INGREDI Active Rash 2014-05 005 00:00: 00 [facility] Penicill in Propensi ty to adverse reaction s Active Rash 2014-05 005 00:00: 00 [facility] Social History Social Habit Start Date Stop Date Quantity Comments Source Gender identity 2022-06-19 08:40:11 Identifies as female gender (finding) Jennifer Bunch - External Sexual orientation 2022-06-19 08:40:11 Heterosexual (finding) Jennifer Bunch - External Exposure to SARS-CoV-2 (event) Not sure [facility] History SDOH Alcohol Frequency Jennifer swanson - External History SDOH Alcohol Std Drinks Jennifer cerratoold - External History SDOH Alcohol Binge Jennifer Bunch - External ASSERTION Not Jennifer Bunch - External Alcoholic beverage intake 2024-06-09 00:00:00 2024-06-09 00:00:00 Current drinker of alcohol (finding) Jennifer [...] 00:00:00 social Jennifer Bunch - External Sex 2020-08-07 17:07:57 2020-08-07 17:07:57 Female (finding) Jennifer Bunch - External Sex assigned at 1970 00:00:00 1970 00:00:00 F Jennifer Bunch - Vika Smoking Status Start Date Stop Date Source Unknown if ever smoked [facility] Never smoked tobacco Jennifer Sandy Medications Ordered Medication Name Filled Medication Name Start Date Stop Date Current Medication? Ordering Clinician Indication Dosage Frequency Signature (SIG) Comments Components Source Estradiol (Climara) 0.0375 MG/24HR transdermal PATCH WEEKLY 06-20 00:00: 00 Yes [id number] 1{patch } Q1W Place 1 patch onto the skin once a week. Jennifer hobbs Famotidine (PEPCID) 20 MG oral tablet 06-13 00:00: 00 Yes [id number] 20mg Q.5D TAKE 1 TABLET BY MOUTH TWICE A DAY Jennifer hobbs Azithromyci n 250 MG oral Tablet 06-09 00:00: 00 06-15 05:59 :00 No [id number] Take 2 tablets by mouth on day 1 then 1 tablet by mouth daily for 4 days thereafter .. Jennifer hobbs Benzonatate 100 MG oral Capsule 06-05 00:00: 00 Yes [id number] 100mg Q.[id number] 3D Take 1 capsule (100 mg total) by mouth 3 times daily as needed for cough. Jennifer hobbs Oseltamivir Phosphate (Tamiflu) 75 MG oral Capsule 06-05 00:00: 00 06-11 05:59 :00 No [id number] 75mg Q.5D Take 1 capsule (75 mg total) by mouth 2 times daily for 5 days. Jennifer hobbs FERROUS SULFATE ER OR 05-20 14:50: 40 Yes Take by mouth. Jennifer hobbs Cetirizine (ZyrTEC Allergy) 10 MG oral Tablet 05-20 14:50: 40 Yes 75 10mg QD Take 1 tablet (10 mg total) by mouth daily. Indication s: Hayfever Jennifer hobbs Estradiol (Climara) 0.0375 MG/24HR transdermal PATCH WEEKLY 05-20 00:00: 00 06-20 00:00 :00 No [id number] 1{patch } Q1W Place 1 patch onto the skin once a week. Jennifer hobbs FLUTICASONE PROPIONATE, NASAL, 50 MCG/ACT nasal Suspension 2023-05 00:00: 00 Yes 50ug QD Use 1 spray (50 mcg total) in each nostril daily. Jennifer hobbs FERROUS SULFATE ER OR 2023-05 13:53: 48 Yes Take by mouth. Jennifer hobbs Cetirizine (ZyrTEC Allergy) 10 MG oral Tablet 2023-05 13:53: 48 Yes 75 10mg QD Take 1 tablet (10 mg total) by mouth daily. Indication s: Hayfever Jennifer hobbs Pantoprazol e Sodium 40 MG oral Tablet Delayed Response 2023-05 00:00: 00 Yes [id number] 40mg QD Take 1 tablet (40 mg total) by mouth daily. Jennifer hobbs Famotidine (Pepcid) 20 MG oral tablet 2023-05 00:00: 00 Yes [id number] 20mg Q.5D Take 1 tablet (20 mg total) by mouth 2 times daily. Jennifer hobbs Dicyclomine HCl 20 MG oral Tablet 2023-05 00:00: 00 05-05 00:00 :00 No 20mg Q.[id number] 3D Take 1 tablet (20 mg total) by mouth 3 times daily as needed. Jennifer hobbs Loperamide HCl 2 MG oral Capsule 2023-05 00:00: 00 05-05 00:00 :00 No TAKE 1 CAPSULE BY MOUTH TWICE A DAY NEEDED FOR DIARRHEA Jennifer hobbs FERROUS SULFATE ER OR 2023-05 13:58: 34 Yes Take by mouth. Jennifer hobbs Cetirizine (ZyrTEC Allergy) 10 MG oral Tablet 2023-05 13:58: 34 Yes 75 10mg QD Take 1 tablet (10 mg total) by mouth daily. Indication s: Hayfever Jennifer hobbs Cetirizine (ZyrTEC Allergy) 10 MG oral Tablet 2023-05 10:42: 20 Yes 75 10mg QD Take 1 tablet (10 mg total) by mouth daily. Indication s: Hayfever Jennifer hobbs FLUTICASONE PROPIONATE, NASAL, 50 MCG/ACT nasal Suspension 2023-05 00:00: 00 05-05 00:00 :00 No [id number] 50ug QD Use 1 spray (50 mcg total) in each nostril daily. Jennifer hobbs Azithromyci n 250 MG oral Tablet 2023-05 00:00: 00 03-16 05:59 :00 No [id number] Take 2 tablets by mouth on day 1 then 1 tablet by mouth daily for 4 days thereafter .. Jennifer hobbs FERROUS SULFATE ER OR 12-29 11:25: 21 Yes Take by mouth. Jennifer hobbs FERROUS SULFATE ER OR 12-08 11:21: 45 Yes Take by mouth. Jennifer hobbs Azithromyci n 250 MG oral Tablet 12-03 00:00: 00 03-10 00:00 :00 No TAKE 2 TABLETS BY MOUTH TODAY, THEN TAKE 1 TABLET DAILY FOR 4 DAYS DIRECTED Jennifer hobbs FERROUS SULFATE ER OR 11-30 07:49: 03 Yes Take by mouth. Jennifer hobbs FERROUS SULFATE ER OR 11-19 09:34: 08 Yes Take by mouth. Jennifer hobbs prednisoLON E Acetate 1 % ophthalmic Suspension 11-19 00:00: 00 03-10 00:00 :00 No 1[drp] Q.25D Place 1 drop into the right eye 4 times daily. Jennifer hobbs Moxifloxaci n HCl (Vigamox) 0.5 % ophthalmic Solution 11-19 00:00: 00 03-10 00:00 :00 No 1[drp] Q.25D Place 1 drop into the right eye 4 times daily. Jennifer hobbs Estradiol 0.05 MG/24HR transdermal PATCH WEEKLY 11-16 00:00: 00 03-10 00:00 :00 No [id number] 1{patch } Q1W APPLY 1 PATCH ONCE A WEEK Jennifer hobbs Celecoxib 100 MG oral Capsule 09-22 00:00: 00 Yes [id number] 100mg Q.5D Take 1 capsule (100 mg total) by mouth 2 times daily. Jennifer hobbs Pantoprazol e Sodium 40 MG oral Tablet Delayed Response 09-22 00:00: 00 05-05 00:00 :00 No [id number] 40mg QD TAKE 1 TABLET BY MOUTH EVERY DAY Jennifer hobbs FERROUS SULFATE ER OR 08-18 13:57: 31 Yes Take by mouth. Jennifer hobbs Cyanocobala min (B-12) 1000 MCG oral Capsule 08-18 13:57: 31 Yes Take by mouth. Jennifer hobbs Estradiol 0.05 MG/24HR transdermal PATCH WEEKLY 08-18 00:00: 00 Yes [id number] 1{patch } Place 1 patch onto the skin once a week. Jennifer hobbs Pantoprazol e Sodium 40 MG oral Tablet Delayed Response 08-18 00:00: 00 Yes [id number] 40mg Take 1 tablet (40 mg total) by mouth daily. Jennifer hobbs Celecoxib 200 MG oral Capsule 08-12 00:00: 00 Yes [id number] 200mg Q.5D Take 1 capsule (200 mg total) by mouth 2 times daily as needed for pain (pain). Jennifer hobbs Cyanocobala min (VIT B12) injection 1,000 mcg 07-12 14:30: 00 09-06 13:29 :00 No [id number] 1000ug 1,000 mcg, intramuscu lar, WEEKLY, First dose on Thu07/13/23 at 0830, For 8 doses Jennifer hobbs FERROUS SULFATE ER OR 07-12 07:55: 16 Yes Take by mouth. Jennifer hobbs Cyanocobala min (B-12) 1000 MCG oral Capsule 07-12 07:55: 16 Yes Take by mouth. Jennifer hobbs Celecoxib (CeleBREX) 200 MG oral Capsule 07-12 00:00: 00 Yes [id number] 200mg Take 1 capsule (200 mg total) by mouth 2 times daily. Jennifer hobbs Cholecalcif nasrin (Vitamin D-3) 25 MCG (1000 UT) oral Capsule 07-12 00:00: 00 Yes [id number] 1{tbl} Take 1 tablet by mouth daily. [...] MG oral TABLET DISPERSIBLE 06-16 00:00: 00 03-10 00:00 :00 No 4mg Q6H Take 1 tablet (4 mg total) by mouth every 6 (six) hours. Jennifer hobbs FERROUS SULFATE ER OR 2022-05 14:26: 35 Yes Take by mouth. Jennifer hobbs Cyanocobala min (B-12) 1000 MCG oral Capsule 2022-05 14:26: 35 Yes Take by mouth. Jennifer hobbs Na Sulfate-K Sulfate-Mg Sulf (SUPREP BOWEL PREP KIT) 17.5-3.13-1 .6 GM/177ML oral Solution 2022-05 00:00: 00 Yes [id number] Instructio ns provided to patient. Follow instructio ns provided by provider.. Jennifer hobbs Cyanocobala min (B-12) 1000 MCG oral Capsule 01-05 10:52: 09 Yes Take by mouth. Jennifer hobbs FERROUS SULFATE ER OR 01-05 10:51: 49 Yes Take by mouth. Jennifer hobbs Estrogens Conjugated (Premarin) 0.625 MG oral Tablet 01-05 00:00: 00 08-18 00:00 :00 No [id number] .625mg Take 1 tablet (0.625 mg total) by mouth daily. Jennifer hobbs methylPREDN ISolone 4 MG oral Tablet Therapy Pack 09-30 00:00: 00 Yes [id number] 1{fátima} Take 1 fátima by mouth See Admin Instructio ns Use as directed Jennifer hobbs methylPREDN ISolone 4 MG oral Tablet Therapy Pack 09-30 00:00: 00 12-08 00:00 :00 No [id number] 1{fátima} Take 1 fátima by mouth See Admin Instructio ns Use as directed Jennifer hobbs Doxycycline Hyclate 100 MG oral Tablet 2021-05 00:00: 00 Yes [id number] 100mg Take 1 tablet (100 mg total) by mouth 2 times daily Jennifer hobbs Pseudoephed rine-Guaife nesin (Mucinex D Max Strength) 120-1200 MG oral Tablet 12 Hour Sustained Release 2021-05 00:00: 00 Yes [id number] 1{tbl} Take 1 tablet by mouth every 12 hours Jennifer hobbs methylPREDN ISolone 4 MG oral Tablet Therapy Pack 2021-05 00:00: 00 Yes [id number] Take 1 fátima by mouth See Admin Instructio ns Use as directed Jennifer hobbs Pantoprazol e Sodium 40 MG oral Tablet Delayed Response 2021-05 00:00: 00 12-08 00:00 :00 No [id number] 40mg Take 1 tablet (40 mg total) by mouth daily Jennifer hobbs Meloxicam 7.5 MG oral Tablet 12-20 00:00: 00 04-16 00:00 :00 No [id number] 7.5mg Take 1 tablet (7.5 mg total) by mouth daily Jennifer Bunch - Externa l ibuprofen (MOTRIN) 600 mg tablet 09-11 00:00: 00 Yes 600mg Take 1 tablet by mouth every 6 (six) hours as needed for Pain (scale 4-6). [facility] acetaminoph en-codeine (TYLENOL #3) 300-30 mg tablet 09-11 00:00: 00 Yes 1{tbl} Take 1 tablet by mouth every 4 (four) hours as needed for Pain (scale 4-6). [facility] Vital Signs Vital Name Observation Time Observation Value Comments S annaskip Systolic blood pressure 2024-05-20 20:47:00 125 mm[Hg] Jennifer Padillao ld - External Diastolic blood pressure 2024-05-20 20:47:00 88 mm[Hg] Jennifer Padillao ld - External Heart rate 2024-05-20 20:47:00 74 /min Kelse y Seybold - External Body height 2024-05-20 20:47:00 167.6 cm Aleida ey Seybold - External Body weight 2024-05-20 20:47:00 86.456 kg Aleida ey Seybold - External BMI 2024-05-20 20:47:00 30.76 kg/m2 Aleida ey Seybold - External Systolic blood pressure 2024-05-05 19:51:00 120 mm[Hg] Jennifer Padillao ld - External Diastolic blood pressure 2024-05-05 19:51:00 82 mm[Hg] Jennifer Padillao ld - External Heart rate 2024-05-05 19:51:00 97 /min Kelse y ybold - External Body temperature 2024-05-05 19:51:00 36.83 Esha Jennifer Seybold - External Respiratory rate 2024-05-05 19:51:00 14 /min Jennifer Ferreiraybold - External Body height 2024-05-05 19:51:00 167.6 cm Aleida ey Seybold - External Body weight 2024-05-05 19:51:00 88.451 kg Aleida ey Seybold - External BMI 2024-05-05 19:51:00 31.47 kg/m2 Aleida ey Seybold - External Oxygen saturation in Arterial blood by Pulse oximetry 2024-05-05 19:51:00 98 /min Jennifer Seybo ld - External Systolic blood pressure 2024-03-28 19:56:00 142 mm[Hg] Jennifer Seybo ld - External Diastolic blood pressure 2024-03-28 19:56:00 78 mm[Hg] Jennifer Seybo ld - External Heart rate 2024-03-28 19:56:00 84 /min Kelse y Seybold - External Body temperature 2024-03-28 19:56:00 37 Esha Jennifer Seybold - External Respiratory rate 2024-03-28 19:56:00 16 /min Jennifer Seybold - External Body height 2024-03-28 19:56:00 167.6 cm Aleida ey Seybold - External Body weight 2024-03-28 19:56:00 84.369 kg Aleida ey Seybold - External BMI 2024-03-28 19:56:00 30.02 kg/m2 Aleida ey Seybold - External Oxygen saturation in Arterial blood by Pulse oximetry 2024-03-28 19:56:00 97 /min Jennifer Seybo ld - External Systolic blood pressure 2024-03-10 15:36:00 151 mm[Hg] Jennifer Seybo ld - External Diastolic blood pressure 2024-03-10 15:36:00 88 mm[Hg] Jennifer Seybo ld - External Heart rate 2024-03-10 15:36:00 67 /min Kelse y Seybold - External Body temperature 2024-03-10 15:36:00 36.67 Esha Jennifer Seybold - External Respiratory rate 2024-03-10 15:36:00 16 /min Jennifer Seybold - External Body height 2024-03-10 15:36:00 167.6 cm Aleida ey Seybold - External Body weight 2024-03-10 15:36:00 87.091 kg Aleida ey Seybold - External BMI 2024-03-10 15:36:00 30.99 kg/m2 Aleida ey Seybold - External Oxygen saturation in Arterial blood by Pulse oximetry 2024-03-10 15:36:00 100 /min Jennifer Seybo ld - External Systolic blood pressure 2023-10-06 19:48:00 131 mm[Hg] [...] External Heart rate 2023-08-19 18:54:00 78 /min Allanse y Seybold - External Body temperature 2023-08-19 [...] by Pulse oximetry 2023-07-06 20:46:00 96 /min Jennifer Seybo ld - External Systolic [...] External Body temperature 2022-12-08 18:48:00 36.5 Esha Jennifre Seybold - External Respiratory rate 2022-12-08 18:48:00 16 /min Jennifer Seybold - External Body height 2022-12-08 18:48:00 167.6 cm Aleida ey Seybold - External Body weight 2022-12-08 18:48:00 85.276 kg Aleida ey Seybold - External BMI 2022-12-08 18:48:00 30.34 kg/m2 Aelida ey Seybold - External Oxygen saturation in Arterial blood by Pulse oximetry 2022-12-08 18:48:00 97 /min Jennifer Gupta ld - External Procedures Procedure Date / Time Performed Performing Clinicia n Source PHYSICIAN ORDERS 2019-12-22 05:01:00 Doctor Claudio signed, Pump Back [facility] Encounters Start Date/Time End Date/Time Encounter Type Admission Type Attending [facility] Care Department Encounter ID Source 2025-01-10 11:00:00 2025-01-10 11:00:00 Outpatient CARLA GONZALEZ [id number] Jennifer Seybyulisa 2024-09-21 00:00:00 2024-09-21 00:00:00 Outpatient JESUS WILD [id number] Jennifer Seybyulisa 2024-09-13 00:00:00 2024-09-13 00:00:00 Outpatient GEO HERNDON [id number] Jennifer Seybyulisa 2024-07-28 00:00:00 2024-07-28 00:00:00 Outpatient GEO HERNDON [id number] Jennifer Seybyulisa 2024-07-28 00:00:00 2024-07-28 00:00:00 Outpatient GEO HERNDON [id number] Jennifer Seybyulisa 2024-07-27 00:00:00 2024-07-27 00:00:00 Outpatient AROLDO GIBSON [id number] Jennifer Seybyulisa 2024-07-13 00:00:00 2024-07-13 00:00:00 Outpatient JESUS WILD [id number] Jennifer Seybyulisa 2024-06-20 15:30:00 2024-06-20 15:30:00 Outpatient DEE GARCIA [id number] Jennifer Seybyulisa 2024-06-13 00:00:00 2024-06-13 00:00:00 Outpatient JESUS WILD [id number] Jennifer Seybyulisa 2024-06-10 07:40:00 2024-06-10 07:40:00 Outpatient JENNIFER OLIVER [id number] Jennifer Seybyulisa 2024-06-09 08:00:00 2024-06-09 08:00:00 Outpatient ZHOU CISNEROS JENNIFER OLIVER [id number] Jennifer Seybyulisa 2024-06-06 13:30:00 2024-06-06 13:30:00 Outpatient INGEGEO Hobbs JENNIFER OLIVER [id number] Jennifer Seybold 2024-06-05 15:15:00 2024-06-05 15:15:00 Outpatient TODD BRIDGES JENNIFER OLIVER [id number] [facility] 2024-06-01 11:40:00 2024-06-01 11:40:00 Outpatient JENNIFER OLIVER [id number] [facility] 2024-05-20 14:45:00 2024-05-20 14:45:00 Outpatient RADHA DEEENEIDA OLIVER [id number] [facility] 2024-05-05 14:45:00 2024-05-05 14:45:00 Outpatient LAB90 JENNIFER OLIVER [id number] [facility] 2024-05-05 14:00:00 2024-05-05 14:00:00 Outpatient JESUS WILD JENNIFER OLIVER [id number] [facility] 2024-04-01 09:30:00 2024-04-01 09:30:00 Outpatient ZHOU CISNEROS JENNIFER OLIVER [id number] [facility] 2024-03-28 14:00:00 2024-03-28 14:00:00 Outpatient ZHOU CISNEROS JENNIFER OLIVER [id number] [facility] 2024-03-10 10:45:00 2024-03-10 10:45:00 Outpatient AROLDO GIBSON [id number] Jennifer Seybold 2024-03-10 00:00:00 2024-03-10 00:00:00 Outpatient MD JENNIFER JAIMES [id number] Jennifer Seybold 2024-01-12 08:45:00 2024-01-12 08:45:00 Outpatient SHIELA OLSON [id number] Jennifer Seybold 2023-12-30 11:45:00 2023-12-30 11:45:00 Outpatient IGBINOBA, SHIELA JENNIFER OLIVER [id number] [facility] 2023-12-09 11:15:00 2023-12-09 11:15:00 Outpatient IGBINOBA, SHIELA JENNIFER OLIVER [id number] Jennifer Ferreiraybyulisa 2023-12-09 00:00:00 2023-12-09 00:00:00 Outpatient IGBINOBA, SHIELA JENNIFER OLIVER [id number] [facility] 2023-12-01 08:00:00 2023-12-01 08:00:00 Outpatient IGBINOBA, SHIELA OLIVER [id number] [facility] 2023-11-30 12:40:00 2023-11-30 12:40:00 Outpatient IGBINOBA, SHIELALore OLIVER [id number] [facility] 2023-11-20 09:30:00 2023-11-20 09:30:00 Outpatient IGBINOBA, [facility]EL[id number] [facility]23-11-18 00:00:00 2023-11-18 00:00:00 Outpatient HUNDL, GEO [facility] [id number] [facility] 2023-11-15 00:00:00 2023-11-15 00:00:00 Outpatient HUNDL, GEO OLIVER [id number] [facility] 2023-11-10 00:00:00 2023-11-10 00:00:00 Outpatient JENNIFER OLIVER [id number] [facility] 2023-10-06 15:55:00 2023-10-06 15:55:00 Outpatient EIO835Vaishnavi OLIVER [id number] [facility] 2023-10-06 15:00:00 2023-10-06 15:00:00 Outpatient SVEN SIERRA [id number] [facility] 2023-09-28 14:45:00 2023-09-28 14:45:00 Outpatient MATTEO SPIVEY [id number] [facility] 2023-09-18 00:00:00 2023-09-18 00:00:00 Outpatient HUNDL GEO OLIVER [id number] Jennifer Seybyulisa 2023-09-08 15:00:00 2023-09-08 15:00:00 Outpatient JENNIFER OLIVER [id number] Jennifer Seybyulisa 2023-09-04 14:45:00 2023-09-04 14:45:00 Outpatient WHITNEYSHIELA JENNIFER OLIVER [id number] Jennifer Seybyulisa 2023-09-03 15:00:00 2023-09-03 15:00:00 Outpatient JENNIFER OLIVER [id number] Jennifer Seybyulisa 2023-09-03 08:00:00 2023-09-03 08:00:00 Outpatient LABNidhi OLIVER [id number] Jennifer Seybold 2023-09-02 15:30:00 2023-09-02 15:30:00 Outpatient ZEV MARQUEZ [id number] Jennifer Seybold 2023-08-26 15:30:00 2023-08-26 15:30:00 Outpatient ZEV MARQUEZ [id number] Jennifer Seybyulisa 2023-08-21 00:00:00 2023-08-21 00:00:00 Outpatient MATTEO SPIVEY [id number] Jennifer Seybold 2023-08-21 00:00:00 2023-08-21 00:00:00 Outpatient MD JENNIFER JAIMES [id number] Jennifer Seybold 2023-08-20 16:10:00 2023-08-20 16:10:00 Outpatient KRISTINE, RICK OLIVER [id number] Jennifer Seybold 2023-08-20 15:40:00 2023-08-20 15:40:00 Outpatient IRENE CID [id number] Jennifer Seybold 2023-08-19 14:00:00 2023-08-19 14:00:00 Outpatient GEO HERNDON [id number] Jennifer Seybyulisa 2023-08-13 15:30:00 2023-08-13 15:30:00 Outpatient ZEV MARQUEZ [id number] Jennifer Seybold 2023-08-10 14:00:00 2023-08-10 14:00:00 Outpatient GEO HERNDON JENNIFER [id number] Jennifer Seybyulisa 2023-08-09 00:00:00 2023-08-09 00:00:00 Outpatient GEO HERNDON JENNIFER [id number] Jennifer Seybyulisa 2023-08-06 15:30:00 2023-08-06 15:30:00 Outpatient JIMMY, ZEV OLIVER JENNIFER [id number] Jennifer Seybold 2023-07-30 15:30:00 2023-07-30 15:30:00 Outpatient JIMMY, ZEV JENNIFER OLIVER [id number] Jennifer Seybold 2023-07-23 15:30:00 2023-07-23 15:30:00 Outpatient JIMMY, ZEV JENNIFER OLIVER [id number] Jennifer Seybold 2023-07-22 15:00:00 2023-07-22 15:00:00 Outpatient SONJA SINGH [id number] Jennifer Seybold 2023-07-13 08:00:00 2023-07-13 08:00:00 Outpatient GEO HERNDON JENNIFER OLIVER [id number] Jennifer Seybold 2023-07-06 15:30:00 2023-07-06 15:30:00 Outpatient ROEL JENNIFER OLIVER [id number] Jennifer Seybold 2023-07-06 14:45:00 2023-07-06 14:45:00 Outpatient SONJA SINGH [id number] Jennifer Seybold 2023-06-09 00:00:00 2023-06-09 00:00:00 Outpatient JENNIFER OLIVER [id number] Jennifer Seybold 2023-06-04 10:30:00 2023-06-04 10:30:00 Outpatient MATTEO SPIVEY [id number] Jennifer Seybold 2023-05-28 00:00:00 2023-05-28 00:00:00 Outpatient MD JENNIFER JAIMES [id number] Jennifer Seybold 2023-05-20 00:00:00 2023-05-20 00:00:00 Outpatient JENNIFER OLIVER [id number] [facility] 2023-05-19 00:00:00 2023-05-19 00:00:00 Outpatient AROLDO GIBSON JENNIFER OLIVER [id number] Jennifer Seybold 2023-04-30 15:00:00 2023-04-30 15:00:00 Outpatient LAB90 JENNIFER OLIVER [id number] Jennifer Seybold 2023-04-28 00:00:00 2023-04-28 00:00:00 Outpatient OSVALDO ESTRADA JENNIFER OLIVER [id number] [facility] 2023-03-30 14:45:00 2023-03-30 14:45:00 Outpatient PATRIC MATTEO JENNIFER OLIVER [id number] [facility] 2023-03-30 00:00:00 2023-03-30 00:00:00 Outpatient JENNIFER OLIVER [id number] [facility] 2023-01-30 00:00:00 2023-01-30 00:00:00 Outpatient ANUJ BENTON [id number] [facility] 2023-01-29 00:00:00 2023-01-29 00:00:00 Outpatient ANUJ BENTON [id number] [facility] 2023-01-28 11:00:00 2023-01-28 11:00:00 Outpatient JENNIFER OLIVER [id number] [facility] 2023-01-27 14:30:00 2023-01-27 14:30:00 Outpatient TRED47 JENNIFER OLIVER [id number] [facility] 2023-01-23 09:25:00 2023-01-23 09:25:00 Outpatient CHETANANUJ GARDNER [id number] Jennifer Seybold 2023-01-05 11:30:00 2023-01-05 11:30:00 Outpatient WCLAB JENNIFER OLIVER [id number] Jennifer Seybold 2023-01-05 10:45:00 2023-01-05 10:45:00 Outpatient JESS TOMAS II [id number] Jennifer Seybold 2022-12-12 00:00:00 2022-12-12 00:00:00 Outpatient SONJA SINGH JENNIFER OLIVER [id number] Jennifer [facility] 2022-12-10 00:00:00 2022-12-10 00:00:00 Outpatient SONJA SINGH JENNIFER OLIVER [id number] [facility] 2022-12-09 14:00:00 2022-12-09 14:00:00 Outpatient [facility]ND[facility] [id number] [facility] 2022-12-08 14:50:00 2022-12-08 14:50:00 Outpatient SARITA90 JENNIFER OLIVER [id number] Jennifer [facility] 2022-12-08 14:00:00 2022-12-08 14:00:00 Outpatient SONJA SINGH JENNIFER OLIVER [id number] Jennifer [facility] 2022-09-30 11:30:00 2022-09-30 11:30:00 Outpatient VINEET INO JENNIFER OLIVER [id number] Jennifer [facility] 2022-06-19 09:30:00 2022-06-19 09:30:00 Outpatient LUISEDNA CORNELL JENNIFER OLIVER [id number] Jennifer [facility] 2022-06-12 00:00:00 2022-06-12 00:00:00 Outpatient JENNIFER OLIVER [id number] Jennifer [facility] 2022-05-13 15:30:00 2022-05-13 15:30:00 Outpatient SONJA SINGH JENNIFER OLIVER [id number] Jennifer [facility] 2022-05-13 00:00:00 2022-05-13 00:00:00 Outpatient SONJA SINGH JENNIFER OLIVER [id number] Jennifer [facility] 2022-04-18 10:00:00 2022-04-18 10:00:00 Outpatient GEO HERNDON [id number] [facility] 2022-04-17 00:00:00 2022-04-17 00:00:00 Outpatient BETTINA AVILES [id number] [facility] 2022-04-16 13:30:00 2022-04-16 13:30:00 Outpatient BETTINA AVILESENEIDA OLIVER [id number] [facility] 2022-04-16 00:00:00 2022-04-16 00:00:00 Outpatient JENNIFER OLIVER [id number] Jennifer Bunch 2022-04-15 00:00:00 2022-04-15 00:00:00 Outpatient SAMANTHA, SONJA OLIVER [id number] [facility] 2022-03-10 13:30:00 2022-03-10 13:30:00 Outpatient SONJA SINGH JENNIFER OLIVER [id number] [facility] 2022-02-28 10:45:00 2022-02-28 10:45:00 Outpatient LABNidhi JENNIFER OLIVER [id number] [facility] 2022-02-24 15:15:00 2022-02-24 15:15:00 Outpatient LAB90 JENNIFER OLIVER [id number] Jennifer [facility] 2022-02-24 14:45:00 2022-02-24 14:45:00 Outpatient SAMANTHA SONJA OLIVER [id number] Jennifer [facility] 2022-01-09 10:55:00 2022-01-09 11:03:47 E-Visit Michelet Cuellarsixtoana MARTIN [id number] [facility] 2022-01-06 00:00:00 2022-01-06 00:00:00 Outpatient SAMANTHA SONJA OLIVER [id number] Jennifer [facility] 2022-01-03 15:15:00 2022-01-03 15:30:00 Office Visit Sonja Singh [place] [id number] Jennifer [facility] 2021-12-20 15:45:00 2021-12-20 15:45:00 Outpatient LAB90 JENNIFER OLIVER [id number] Jennifer [facility] 2021-12-20 15:00:00 2021-12-20 15:00:00 Outpatient SONJA SINGH JENNIFER OLIVER [id number] Jennifer Bunch 2021-12-17 15:30:00 2021-12-17 15:30:00 Outpatient SONJA SINGH JENNIFER OLIVER [id number] Jennifer Bunch 2021-12-16 11:00:00 2021-12-16 11:00:00 Outpatient SONJA SINGH JENNIFER OLIVER [id number] [facility] 2020-06-18 00:00:00 2020-06-18 00:00:00 Outpatient R BRONWYN DE LA ROSA [facility] [id number] [facility] 2019-12-22 16:15:00 2019-12-22 16:15:00 Outpatient BRONWYN CABRERA [facility] [id number] [facility] 2019-12-22 14:28:28 2019-12-22 14:43:28 Lab Tester Visit 2, Adc Lab [facility] [id number] [facility] 2019-12-22 00:00:00 2019-12-22 00:00:00 Orders Only Doctor Unassigned, Pump Back [facility] [id number] [facility] Notes Date/Time Note Provider Source 2024-05-20 14:48:44 Abby Fleming is here today for her Well Woman Exam. No LMP recorded (lmp unknown). Patient has had a hysterectomy. The patient's last Pap smear was on 2012 and results were Normal Last Mammogram was on 2012 and results were Normal. Lacy Childress CMA [employer] [facility] [facility] 2024-05-05 13:53:50 Chief Complaint Patient presents with Abdominal Pain Right side pain for about 2 weeks. Thursday it was really bad pain. The pain seems to be right under rib cage area. She does complain of nausea, vomiting and diarrhea. Nicole Naqvi MA II [facility] 2023-10-06 14:48:09 Chief Complaint Patient presents with Hematology Consult Elevated immunoglobulin A; referred by Sonja Singh MD Laura E Rivera, CMA II [facility] 2023-08-19 13:58:22 Chief Complaint Patient presents with Physical Patient is not fasting today Yesenia Arshad LVN [facility] 2023-07-13 08:39:50 Patients allergies assessed,administered Cyanocobalamin 1000 mcg IM to left outer quadrant gluteal and tolerated well. [facility] Anushka Horn LVN [facility] 2023-07-13 07:55:19 Chief Complaint Patient presents with Follow-up 1 week follow up on abdominal pain. She says that it's getting better. Nicole Naqvi MA II [facility] 2023-07-06 14:55:56 Chief Complaint Patient presents with Fatigue Abdominal Pain Abdominal pain for two weeks Yesenia Arshad LVN [facility] 2023-01-05 10:51:18 Formatting of this n ote is different from the original. Chief Complaint Patient presents with Menopausal Symptoms Hot flashes, nigh sweats and mood swings Leti Hamilton MA I T [facility] 2022-12-08 13:51:33 Formatting of this n ote might be different from the original. Patient is here to be seen for C/O her ears feeling clogged and ringing x 1 week. VSS, no daily medications taken. T Yari Dupont [facility]
[2024-10-01] MEDS ORDERED: HYDROCODONE/APAP 5/325 MG TAB ONE (10:14)
--- NOTE | 2024-10-01 10:54 | RAD REPORT ---
EXAMINATION: Lumbar Spine - Single View VIEWS: As above CLINICAL INDICATION: Female, 54 years old. PAIN COMPARISON: No prior exam. IMPRESSION: No acute fracture. No malalignment. Partially bridging osteophyte at L3-4. Minimal endplate spurring at the other levels. Surgical clips in the right upper quadrant.
--- NOTE | 2024-10-01 10:56 | RAD REPORT ---
EXAMINATION: Sacrum And Coccyx VIEWS: Three views CLINICAL INDICATION: Female, 54 years old. PAIN COMPARISON: No prior exam. IMPRESSION: The lower portion of the sacrum and coccyx is not well evaluated on the lateral view due to underpene tration and body habitus. No fracture seen at the upper portion of the sacrum. If there is consistent clinical concern for a fracture at the lower sacrum or at the coccyx, CT could further corin luate.
[2024-10-01] MEDS ORDERED: ONDANSETRON 4 MG/2 ML VIAL ONE (11:32)
[2024-10-01] MEDS ORDERED: MORPHINE 4 MG/ML SYR ONE (11:32)
--- NOTE | 2024-10-01 11:41 | RAD REPORT ---
EXAMINATION: Spine Lumbar Wo Con CLINICAL INDICATION: Female, 54 years old. PAIN TECHNIQUE: Axial CT images were obtained through the lumbar spine in soft tissue and bone windows wit hout intravenous contrast. Coronal and Sagittal reformatted images were created from the data set. One or more of the following dose reduction techniques were used: Automated exposure control, adjustm ent of the mA and/ or kV according to patient size, and/or iterative reconstruction. Unless otherwise specified, incidental findings do not require dedicated imaging follow-up. [id number]. COMPARISON: No prior exam. FINDINGS: For purposes of this dictation, it is assumed that there are 5 non rib-bearing lumbar type vertebrae, and the most caudal fully segmented lumbar vertebra is labeled L5. ALIGNMENT: The lumbar spine demonstrates normal alignment without scoliosis or spondylolisthesis. BONES: No lumbar spine fracture identified. Lucency through the coccyx which is best seen on image 46 , series 204 suspicious for a nondisplaced acute coccygeal fracture. DISCS: Intervertebral disc space heights are maintained. Partially bridging osteophyte at L3-4. LEVELS: No significant spinal canal or neural foraminal stenosis. No visualized abnormality within th e spinal canal. SOFT TISSUE: No soft tissue abnormalities. IMPRESSION: No acute lumbar spine abnormalities. Nondisplaced acute coccygeal fracture suspected.
--- NOTE | 2024-10-01 11:46 | EDPHYS ---
Physician Documentation [facility] Name: Abby Fleming Age: 54 yrs Sex: Female : 1970 Arrival Date: 10/01/2024 Time: 09:47 Bed 13 Private MD: ED Physician Aj Lindsey HPI: 10/01 13:22 This 54 yrs old Female presents to ER via Wheelchair with complaints of Fall dr5 Injury. 13:22 Details of fall: The patient fell from an upright position, while standing. Onset: The dr5 symptoms/episode began/occurred yesterday. Patient is a 54-year-old female with history of anemia, GERD, ovarian cyst coming in with fall that happened yesterday. Patient reports that she stumbled and fell on her buttocks yesterday. Patient reports her pain was tolerable yesterday and has worsened since this morning. Patient denies numbness tingling in legs, perirectal numbness, fever.. Historical: - Allergies: 09:58 PENICILLINS; iw - PMHx: 09:58 Anemia; Gastroesophageal reflux disease; Ovarian cyst; iw - PSHx: 09:58 Cholecystectomy; partial hysterectomy; iw - Immunization history:: Adult Immunizations not up to date. - Infectious Disease History:: Denies. - Social history:: Smoking status: Reported history of juuling and/or vaping. ROS: 13:22 Constitutional: as per hpi dr5 Exam: 13:22 Constitutional: This is a well developed, well nourished patient who is awake, alert, dr5 and in no acute distress. Head/Face: Normocephalic, atraumatic. ENT: Nares patent. No nasal discharge, no septal abnormalities noted. Tympanic membranes are normal and external auditory canals are clear. Oropharynx with no redness, swelling, or masses, exudates, or evidence of obstruction, uvula midline. Mucous membranes moist. Neck: Trachea midline, no thyromegaly or masses palpated, and no cervical lymphadenopathy. Supple, full range of motion without nuchal rigidity, or vertebral point tenderness. No Meningismus. Chest/axilla: Normal chest wall appearance and motion. Nontender with no deformity. No lesions are appreciated. Cardiovascular: Regular rate and rhythm with a normal S1 and S2. Normal PMI, no JVD. No pulse deficits. Respiratory: Lungs have equal breath sounds bilaterally, clear to auscultation. No rales, rhonchi or wheezes noted. No increased work of breathing, no retractions or nasal flaring. Back: No spinal tenderness. No costovertebral tenderness. Full range of motion. Skin: Warm, dry with normal turgor. Normal color with no rashes, no lesions, and no evidence of cellulitis. MS/ Extremity: Pulses equal, no cyanosis. Neurovascular intact. Full, normal range of motion. Neuro: Awake and alert, GCS 15, oriented to person, place, time, and situation. Cranial nerves II-XII grossly intact. Motor strength 5/5 in all extremities. Sensory grossly intact. Cerebellar exam normal. Normal gait. Vital Signs: 09:58 BP 135 / 88; Pulse 70; Resp 16; Pulse Ox 99% on R/A; Weight 86.18 kg; Height 5 ft. 6 iw in. ; Pain 10/10; 09:58 Body Mass Index 30.67 (86.18 kg, 167.64 cm) iw 09:58 Pain Scale: Adult iw MDM: 09:57 Medical Screening Exam initiated dr5 13:22 Differential diagnosis: abrasion, contusion, fracture. Data reviewed: vital signs, dr5 nurses notes. 13:44 I considered the following discharge prescriptions or medication management in the [facility] emergency department Medications were administered in the Emergency Department. See MAR. Care significantly affected by the following chronic conditions: Anemia, Ovarian Cyst, GERD. Care significantly affected by the following Social Determinants of Health: Poor access to healthcare and/or lack of insurance, Poor access to transportation, Problems related to employment. Counseling: I had a detailed discussion with the patient and/or guardian regarding the historical points, exam findings, and any diagnostic results supporting the discharge/admit diagnosis, the presence of at least one elevated blood pressure reading (>120/80) during this emergency department visit, radiology results, the need for outpatient follow up, for definitive care, a family practitioner, a orthopedic surgeon, to return to the emergency department if symptoms worsen or persist or if there are any questions or concerns that arise at home. Medication response: Response to treatment: the patient's symptoms have markedly improved after treatment. ED course: Patient found to have nondisplaced coccygeal fracture. Recommended patient alternate Tylenol Motrin as needed for pain. Recommended patient get a doughnut to sit on for comfort and support. Recommended continued mobility and ambulation. Recommended patient use high-fiber diet as well as stool softener to help with pain while having bowel movement. All questions answered. Recommended patient follow-up with orthopedics if pain is not improving within the next week or two. at bedside and will drive her home.. 10/01 10:05 Order name: Lumbar Spine (1 view) XRAY; Complete Time: 11:03 dr5 10/01 10:05 Order name: Sacrum And Coccyx XRAY; Complete Time: 11:03 dr5 10/01 11:04 Order name: CT Lumbar Spine Wo Con; Complete Time: 11:42 dr5 Administered Medications: 10:26 Drug: HYDROcodone-acetaminophen PO 5 mg-325 mg 2 tabs PO once Route: PO; iw 11:44 Drug: morphine IVP or IV 4 mg IVP once over 4 mins Route: IVP; Infused Over: 4 mins; ld1 Site: right antecubital; 11:44 Drug: Ondansetron IVP 4 mg IVP once; over 2 minutes Route: IVP; Site: right antecubital;ld1 Disposition Summary: 10/01/24 11:45 Discharge Ordered Notes: Location: Home dr5 Condition: Stable dr5 Diagnosis - Fracture of coccyx dr5 Followup: dr5 - With: Emergency Department - When: As needed - Reason: Worsening of condition Followup: dr5 - With: Private Physician - When: 1 - 2 days - Reason: Recheck today's complaints, Continuance of care, Re-evaluation by your physician Discharge Instructions: - Discharge Summary Sheet dr5 - High-Fiber Eating Plan dr5 - Tailbone Injury dr5 Forms: - Medication Reconciliation Form dr5 - Prescription Opioid Use dr5 - Patient Portal Instructions dr5 - Leadership Thank You Letter dr5 Prescriptions: - Colace 100 mg Oral Tablet - take 1 tablet ORAL route every 12 hours; 14 tablet; Refills: 0, Product dr5 Selection Permitted - Ibuprofen 800 mg Oral Tablet - take 1 tablet ORAL route every 12 hours As needed take with food; 20 tablet; dr5 Refills: 0, Product Selection Permitted - Tramadol 50 mg Oral Tablet - take 1 tablet ORAL route every 8 hours as needed; 12 tablet; Refills: 0, dr5 Product Selection Permitted Addendum: 10/03/2024 12:43 Co-signature as Attending Physician, Aj Lindsey MD I agree with the assessment and c dyson plan of care. Signatures: Dispatcher [employer] Aj Srivastava MD MD cha Williams, Irene RN Chyna Bragg RN RN ld1 Austyn Ferrera, VALDEZ-C BLAST FURNACE CHECKER-Cdr5
--- NOTE | 2024-10-01 11:46 | ER ---
Nurse's Notes [facility] Name: Abby Fleming Age: 54 yrs Sex: Female : 1970 Arrival Date: 10/01/2024 Time: 09:47 Bed 13 Private MD: Diagnosis: Fracture of coccyx Presentation: 10/01 09:57 Chief complaint: Patient states: was in an elevator last night, the door opened and she iw was leaning against it, fell on her tailbone and her left hip hurts. 09:57 Acuity: MELQUIADES 4 iw 09:58 Coronavirus screen: At this time, the client does not indicate any symptoms associated iw with coronavirus-19. Ebola Screen: No symptoms or risks identified at this time. Initial Sepsis Screen: Does the patient meet any 2 criteria? No. Patient's initial sepsis screen is negative. Does the patient have a suspected source of infection? No. Patient's initial sepsis screen is negative. Risk Assessment: Do you want to hurt yourself or someone else? Patient reports no desire to harm self or others. Onset of symptoms was September 30, 2024. 09:58 Method Of Arrival: Wheelchair iw Historical: - Allergies: 09:58 PENICILLINS; iw - PMHx: 09:58 Anemia; Gastroesophageal reflux disease; Ovarian cyst; iw - PSHx: :58 Cholecystectomy; partial hysterectomy; iw - Immunization history:: Adult Immunizations not up to date. - Infectious Disease History:: Denies. - Social history:: Smoking status: Reported history of juuling and/or vaping. Screenin:03 [facility] ED Fall Risk Assessment (Adult) History of falling in the last 3 months, iw including since admission Yes- single mechanical fall (1 pt) Confusion or Disorientation No (0 pts) Intoxicated or Sedated No (0 pts) Impaired Gait No (0 pts) Mobility Assist Device Used No (0 pt) Altered Elimination No (0 pt) Score/Fall Risk Level 0 - 2 = Low Risk Oriented to surroundings, Maintained a safe environment. Abuse screen: Denies threats or abuse. Nutritional screening: No deficits noted. Tuberculosis screening: No symptoms or risk factors identified. Assessment: 10:02 General: Appears in no apparent distress. Behavior is calm, cooperative. Pain: iw Complains of pain in coccyx and pelvis Pain currently is 10 out of 10 on a pain scale. Neuro: Level of Consciousness is awake, alert, obeys commands, Oriented to person, place, time, situation, Moves all extremities. Cardiovascular: Patient's skin is warm and dry. Respiratory: Respiratory effort is even, unlabored, Respiratory pattern is regular, symmetrical. Derm: Skin is healthy with good turgor. 12:07 Reassessment: Patient appears in no apparent distress at this time. No changes from ld1 previously documented assessment. Patient and/or family updated on plan of care and expected duration. Pain level reassessed. Patient is alert, oriented x 3, equal unlabored respirations, skin warm/dry/pink. Vital Signs: 09:58 BP 135 / 88; Pulse 70; Resp 16; Pulse Ox 99% on R/A; Weight 86.18 kg; Height 5 ft. 6 iw in. ; Pain 1010; 09:58 Body Mass Index 30.67 (86.18 kg, 167.64 cm) iw 09:58 Pain Scale: Adult iw ED Course: 09:54 Patient arrived in ED. iw 09:56 Austyn Ferrera FNP-C is PHCP. dr5 09:57 Aj Lindsey MD is Attending Physician. dr5 09:57 Triage completed. iw 09:59 Arm band placed on. iw 10:02 Anya Alcaraz, RN is Primary Nurse. iw 10:45 Lumbar Spine (1 view) XRAY In Process Unspecified. EDMS 10:45 Sacrum And Coccyx XRAY In Process Unspecified. EDMS 11:29 CT Lumbar Spine Wo Con In Process Unspecified. EDMS 11:30 Primary Nurse role handed off by Anya Alcaraz, ROWAN ld1 11:30 Chyna Acuna, ROWAN is Primary Nurse. ld1 12:07 Patient has correct armband on for positive identification. Placed in gown. Bed in low ld1 position. Call light in reach. Side rails up X2. Pulse ox on. NIBP on. Door closed. Noise minimized. Warm blanket given. 12:07 No provider procedures requiring assistance completed. IV discontinued, intact, ld1 bleeding controlled, No redness/swelling at site. Administered Medications: 10:26 Drug: HYDROcodone-acetaminophen PO 5 mg-325 mg 2 tabs PO once Route: PO; iw 11:44 Drug: morphine IVP or IV 4 mg IVP once over 4 mins Route: IVP; Infused Over: 4 mins; ld1 Site: right antecubital; 11:44 Drug: Ondansetron IVP 4 mg IVP once; over 2 minutes Route: IVP; Site: right antecubital;ld1 Medication: 10:03 VIS not applicable for this client. iw Outcome: 11:45 Discharge ordered by . dar 12:07 Discharged to home via wheelchair, with family, ld1 12:07 Condition: stable 12:07 Discharge instructions given to patient, family, Instructed on discharge instructions, follow up and referral plans. medication usage, Demonstrated understanding of instructions, follow-up care, medications, Prescriptions given X 3, 12:07 Patient left the ED. ld1 Signatures: Dispatcher [employer] Anya Waters RN RN Chyna Acuna RN RN ld1 Ausytn Ferrera, ULTRASONIC SEAMING MACHINE OPERATOR-C ULTRASONIC SEAMING MACHINE OPERATOR-Cdr5
[2024-10-01 12:13] VITALS: BP 135/88; O2SAT 99
== END 2024-10-01 12:07 | disposition home or self-care (01) ==
LOC: ER 09:47
DX: S32.2XXA Fracture of coccyx, initial encounter for closed fracture (principal); W18.30XA Fall on same level, unspecified, initial encounter
CPT/HCPCS: 72131; 72020; 72220; 96375; 96374; 99284; J2405